=== PATIENT | female | born 1945 | race Caucasian/White ===

== ENCOUNTER 2022-05-15 08:04 | Outpatient (CLI) | payer MEDICARE, SELFPAY ==
[2022-05-15 15:35] LABS: Chloride* 105 mmol/L (96-114); Potassium* 4.1 mmol/L (3.6-5.1); Sodium* 139 mmol/L (135-149)
[2022-05-15 15:38] LABS: Blood Urea Nitrogen* 20 mg/dL (7-30); Carbon Dioxide* 28 mmol/L (20-32); Creatinine* 0.8 mg/dL (0.5-1.5); Estimated Glomerular Filt Rate 76 ml/min; Glucose* 103 mg/dL (60-115)
[2022-05-15 15:39] LABS: Calcium* 9.3 mg/dL (8.4-10.6)
== END 2022-05-15 08:05 | disposition home or self-care (01) ==
PROVIDERS: PCP Family Medicine; Visit Provider Family Medicine
DX: I10 Essential (primary) hypertension (principal); R35.0 Frequency of micturition
CPT/HCPCS: 80048; 87086; 87186

== ENCOUNTER 2022-08-27 08:49 | Outpatient (CLI) | payer MEDICARE, SELFPAY ==
[2022-08-27 14:29] LABS: Alanine Aminotransferase* 28 U/L (4-35); Albumin* 4.2 g/dL (3.3-5.0); Alkaline Phosphatase* 93 U/L (40-150); Aspartate Amino Transferase* 31 U/L (12-35); Bilirubin Total* 0.8 mg/dL (0.1-1.5); Blood Urea Nitrogen* 23 mg/dL (7-30); Calcium* 8.9 mg/dL (8.4-10.6); Carbon Dioxide* 30 mmol/L (20-32); Chloride* 107 mmol/L (96-114); Cholesterol* 194 mg/dL (90-199); Creatinine* 0.8 mg/dL (0.5-1.5); Estimated Glomerular Filt Rate 76 ml/min; Glucose* 92 mg/dL (60-115); HDL Cholesterol* 65 mg/dL (>=50); LDL Cholesterol Calculated 106 mg/dL (<100); Potassium* 3.6 mmol/L (3.6-5.1); Sodium* 141 mmol/L (135-149); Triglycerides* 114 mg/dL (40-149)
== END 2022-08-27 08:50 | disposition home or self-care (01) ==
LOC: LKVREF 08:56
PROVIDERS: PCP Family Medicine; Visit Provider Family Medicine
DX: I10 Essential (primary) hypertension (principal); E78.00 Pure hypercholesterolemia, unspecified
CPT/HCPCS: 80053; 80061

== ENCOUNTER 2022-08-30 13:50 | Outpatient (CLI) | payer MEDICARE, SELFPAY ==
--- NOTE | 2022-08-30 14:00 | CRLHL7_ITS ---
For Patients: As a result of the Century Cures Act, medical imaging exams and procedure reports are released immediately into your electronic medical record. You may view this report before your referring provider. If you have questions, please contact your health care provider. DXA BONE MINERAL DENSITY STUDY Reason for exam: Osteopenia. Current height (in): 64. Weight (lb): 165. Menopause age: 51. Ethnicity: White. 1. Have you had a previous hip or vertebral fracture? No. 2. Have you had any fractures during your adult life which did not result from significant trauma (e.g., auto accident)? No. 3. Did either of your parents have a hip fracture? Yes. 4. Do you smoke? No. 5. Have you ever taken Glucocorticoids? No. 6. Do you have rheumatoid arthritis? No. 7. Do you have secondary osteoporosis? No. 8. Do you drink 3 or more alcoholic drinks per day? No. 9. Are you being treated for osteoporosis? No. 10. Have you ever taken any of the following medications: Actonel, Evista, Fosamax, Miacalcin, Reclast, Boniva, Forteo, HRT (i.e., estrogen/hormone therapy), Protelos, Prolia, Vitamin D, Calcium, other ??? please specify. ANSWER: Yes, vitamin D and calcium. 11. Do you have any of the following medical conditions: Anorexia or bulimia, asthma or emphysema, end stage renal disease, hyperparathyroidism, any seizure disorders, cancer, inflammatory bowel diseases, hysterectomy, other ??? please specify. ANSWER: Yes, hysterectomy. 12. What was your maximum height (inches)? 64. 13. Do you perform weight bearing exercise regularly? No. 14. Do you regularly consume dairy products? Yes. 15. Do you drink caffeinated beverages? Yes. If female: 16. At what age did your period start? 11. 17. Are you premenopausal? No. 18. How many full-term pregnancies have you had? 4. 19. Have you ever missed your period for more than 6 months in a row (not including or menopause)? No. TECHNIQUE: Bone mineral density study was performed using the [employer]. FINDINGS: The results of the study expressed as bone mineral density (BMD) are as follows: Lumbar spine L1 to L4: BMD: 0.874 g/cm2. T-score: -1.6. Z-score: 0.9 Neck Left: BMD: 0.723 g/cm2. T-score: -1.1. Z-score: 1.0 Right: BMD: 0.765 g/cm2. T-score: -0.8. Z-score: 1.4 Total Left: BMD: 0.920 g/cm2. T-score: -0.2. Z-score: 1.7 Right: BMD: 0.874 g/cm2. T-score: -0.6. Z-score: 1.3 IMPRESSION: Osteopenia. *Comparison exams done prior to 01/2020 were performed on different unit, [facility]. COMPARISON: Compared with scan of 11/10/2015, the bone mineral density has increased by 0.9 percent at the spine and increased by 0.2 percent at the hip. FRAX 10-year Fracture Risk Major Osteoporotic Fracture: 17% Hip Fracture: 8.1% Reported Risk Factors: [place] () Neck BMD=0.723, BMI= 28.3, parental fracture Gil Kirkland M.D. Diagnostic Radiologist [email or web address] KRISTEN/[email or web address] wick/Dictated by: Gil Kirkland MD @ 08/31/2022 3:21:00 PM (Electronically Signed)
== END 2022-08-30 13:51 | disposition home or self-care (01) ==
LOC: RAD 13:50
PROVIDERS: PCP Family Medicine; Visit Provider Family Medicine
DX: M85.80 Other specified disorders of bone density and structure, unspecified site (principal); M85.89 Other specified disorders of bone density and structure, multiple sites
CPT/HCPCS: 77080

== ENCOUNTER 2022-11-13 14:49 | Outpatient (CLI) | payer MEDICARE, SELFPAY ==
--- NOTE | 2022-11-13 15:00 | CRLHL7_ITS ---
For Patients: As a result of the Century Cures Act, medical imaging exams and procedure reports are released immediately into your electronic medical record. You may view this report before your referring provider. If you have questions, please contact your health care provider. BILATERAL SCREENING MAMMOGRAM WITH COMPUTER-AIDED DETECTION AND TOMOSYNTHESIS TECHNIQUE: CC and MLO views were obtained. These mammographic images have been obtained using full-field digital technique. These mammographic images were interpreted with the benefit of computer-aided detection. Breast tomosynthesis was used in this interpretation. COMPARISON FILM: 10/29/19, 02/03/18, 01/02/17. FINDINGS: There are scattered areas of fibroglandular density. IMPRESSION: There is no radiographic evidence for malignancy. ASSESSMENT: BI-RADS Category 1: Negative RECOMMENDATION: Routine screening mammogram in 1 year. A lay language report of this examination will be provided to the patient. CHASTITY CRAWFORD M.D. Diagnostic/Breast Radiologist [email or web address] LUCIA/[email or web address] Transcribed: 11/14/2022, 2:[address]/Dictated by: Chastity Crawford MD @ 11/14/2022 8:51:00 AM (Electronically Signed)
== END 2022-11-13 14:50 | disposition home or self-care (01) ==
PROVIDERS: PCP Family Medicine; Visit Provider Family Medicine
DX: Z12.31 Encounter for screening mammogram for malignant neoplasm of breast (principal)
CPT/HCPCS: 77063; 77067

== ENCOUNTER 2023-07-18 12:37 | Outpatient (CLI) | payer MEDICARE, SELFPAY | END 2023-07-18 12:38 | disposition home or self-care (01) | LOC: RAD 12:38 | PROVIDERS: PCP Family Medicine; Visit Provider Family Medicine | DX: I77.810 Thoracic aortic ectasia (principal); I35.1 Nonrheumatic aortic (valve) insufficiency; I34.0 Nonrheumatic mitral (valve) insufficiency; E78.00 Pure hypercholesterolemia, unspecified; I10 Essential (primary) hypertension | CPT/HCPCS: 93306 ==

== ENCOUNTER 2023-08-09 08:16 | Outpatient (CLI) | payer MEDICARE, SELFPAY | END 2023-08-09 08:17 | disposition home or self-care (01) | LOC: NFLDREF 08-12 01:24 | PROVIDERS: PCP Family Medicine; Referring Provider Family Medicine; Visit Provider Family Medicine | DX: E78.00 Pure hypercholesterolemia, unspecified (principal); I10 Essential (primary) hypertension; R53.83 Other fatigue | CPT/HCPCS: 80053; 80061; 82306; 84443 ==

== ENCOUNTER 2023-10-17 15:48 | Inpatient (IN) | payer MEDICARE, SELFPAY ==
[2023-10-17] VITALS (8 sets, daily range): BP systolic 166; BP diastolic 85; PULSE 50–71; RESP 18; TEMP 36.2; O2SAT 88–99; BMI 25.7
--- NOTE | 2023-10-17 16:04 | ED_ITS ---
HPI - Abdominal Pain General Time Seen by Provider: 16:04 Date Seen: 10/17/23 Chief Complaint: Abdominal Pain Stated Complaint: Lower L abdominal pain, nausea Time Seen by Provider: 10/17/23 16:01 Source: patient and RN notes reviewed Mode of arrival: ambulatory Limitations: no limitations History of Present Illness HPI narrative: This 78-year-old female is coming in with complaint of sudden onset left lower abdominal pain. She has had some nausea and vomiting with this. She states this pain is similar to when she had hernia reduced. She believe she has had a done twice. She does know 1 time was in the ER in [facility] when [place]. This was maybe 2021. She thought she had been seen here before. I did go back into the historical link, she was seen in 2020, she did not have any hernia reduced but there was notable umbilical and left inguinal hernias, was treated for probable sigmoid diverticulitis. She states she is up-to-date on colonoscopy. She has had no fever. Is not passing any gas now. Pain is definitely there and problematic for her. Specifically, symptoms started about a 1/2 hour after eating lunch at 1:00 p.m.. She has had nausea, has had more dry heaving than true vomiting. MD elicited complaint: abdominal pain Related Data Home Medications Medication Instructions Recorded Confirmed coenzyme Q10 100 mg capsule 300 mg PO QDAY 07/17/22 08/13/23 lutein extract 15 mg-zeaxanthin 1 cap PO DAILY 08/30/22 08/13/23 extract 0.7 mg capsule Fish oil PO DAILY 04/05/23 08/13/23 Previous Rx's Medication Instructions Recorded amlodipine 2.5 mg tablet 2.5 mg PO QDAY #90 tabs 08/13/23 rosuvastatin 5 mg tablet 5 mg PO QDAY #90 tabs 08/13/23 triamterene 37.5 1 cap PO QAM #90 caps 08/13/23 mg-hydrochlorothiazide 25 mg capsule Allergies Allergy/AdvReac Type Severity Reaction Status Date / Time amoxicillin Allergy Unknown Verified 10/17/23 18:08 losartan Allergy Unknown Verified 10/17/23 18:08 Review of Systems Status of ROS Reports: 6 or more systems reviewed and unremarkable except as noted in History and below [facility] Medical History Macular degeneration ?H35.30 - Unspecified macular degeneration (ICD-10) Hypercholesteremia ?E78.00 - Pure hypercholesterolemia, unspecified (ICD-10) HTN (hypertension) ?I10 - Essential (primary) hypertension (ICD-10) Surgical History History of hysterectomy ?Z90.710 - Acquired absence of both cervix and uterus (ICD-10) History of esophagogastroduodenoscopy (EGD) ?Z98.890 - Other specified postprocedural states (ICD-10) History of bilateral salpingo-oophorectomy (BSO) ?Z90.79 - Acquired absence of other genital organ(s) (ICD-10) ?Z90.722 - Acquired absence of ovaries, 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) Social History Smoking Status: Never smoker Do you use any of these nicotine containing products: None Second hand tobacco smoke exposure: No How often do you have a drink containing alcohol: never AUDIT-C Alcohol total score: 0 Non-prescribed substance use: denies use Little interest or pleasure in doing things: several days Feeling down, depressed, or hopeless: several days service: No Exam Const: Vital Signs, click to edit/add: Vital Signs - 24 hr 10/17/23 15:56 10/17/23 16:58 10/17/23 17:00 Temperature 97.2 F L Pulse Rate 54 L 50 L Pulse Rate [Pulse Oximeter] 68 Respiratory Rate 18 Blood Pressure [Ri ght Upper Arm] 166/85 H Pulse Oximetry 96 92 96 Oxygen Delivery Me thod Room Air Oxygen Flow Rate 10/17/23 17:18 10/17/23 17:30 10/17/23 18:21 Temperature Pulse Rate 57 L 69 Pulse Rate [Pulse Oximeter] Respiratory Rate Blood Pressure [Ri ght Upper Arm] Pulse Oximetry 99 97 96 Oxygen Delivery Me thod Oxygen Flow Rate 10/17/23 18:30 10/17/23 19:00 10/17/23 19:00 Temperature Pulse Rate 69 71 Pulse Rate [Pulse Oximeter] Respiratory Rate Blood Pressure [Ri ght Upper Arm] Pulse Oximetry 88 97 97 Oxygen Delivery Me thod Nasal Cannula Oxygen Flow Rate 10 She is a very pleasant 78-year-old female that is alert, interactive, seems like she is in a mild amount of pain but during examination, pain increases with palpation of left inguinal and left lower quadrant abdomen. Pupils equal round reactive, conjugate gaze, sclera clear. Speech is normal. Symmetrical facial function. Lungs are clear, good air entry, no wheeze or crackles. CV regular rate and rhythm, no murmur, normal S1-S2, no S3-S4. Abdomen is not distended, she has normal bowel sounds. She has palpable left inguinal hernia that is tender for her, there is no way would be able to reduce this at this point, she is too tender. She is also tender in the left lower quadrant with some guarding, no true rebound. She was ambulatory into the ED of her own accord. Moving extremities equally, no significant edema. No rash or jaundice noted. Documenting provider has reviewed patient's vital signs: yes Course Course ED Course: This patient is presenting with presumed inguinal hernia, rule out incarceration. We will get her some pain management, IV fluids started, have reclined the head of her bed back further. Will see if we can get her to relax enough and potentially reduce this. Will get CT imaging, full complement of labs. Reevaluation(s) Time of Reevaluation #1: 17:17 Reevaluation #1: Patient is still looking uncomfortable. She states the morphine helped her relax a little bit, still having quite a bit of pain. She definitely has left inguinal probable palpable bowel that is tender. Her lactate is normal. I am going to give her 1 mg IV Versed, place her on nasal cannula oxygen, have later flat, consider a bit more morphine. We are waiting CT imaging, will work on pain management and relaxation, will attempt to see if I can reduce this if I can get her comfortable enough. Time of Reevaluation #2: 18:46 Reevaluation #2: Re-dose to patient with 2 mg IV morphine, 1 mg IV Versed, did give 250 mL normal saline with these medicines, had her in Trendelenburg. She has a palpable loop of probable bowel in that left inguinal area that is tender, am unable to reduce this at all. Cannot really feel the origin where it is coming through. Time of Reevaluation #3: 19:39 Reevaluation #3: Updated patient that she will be going to surgery for incarcerated left inguinal hernia and secondary small-bowel obstruction from this. She is currently stable her right now, does not have any need for anything further for nausea or pain at this time. She will keep us updated. She is aware to be NPO. Consultations Consultation #1: Did call Dr. Paul our on-call general surgeon. Have reviewed the situation, we are waiting CT reading, I will contact her once I have that back. She is aware that I was unable to reduce this hernia. Time: 18:52 Consultation #2: Have updated Dr. Paul that there is incarcerated hernia with early small-bowel obstruction. She will be taking patient to the OR. Time: 19:18 Vital Signs Vital signs: Initial Vital Signs Temperature 97.2 F L 10/17/23 15:56 Temperature Source Temporal Artery Scan 10/17/23 15:56 Pulse Rate 68 10/17/23 15:56 Respiratory Rate 18 10/17/23 15:56 Blood Pressure 166/85 H 10/17/23 15:56 Blood Pressure Mean 112 H 10/17/23 15:56 Pulse Oximetry 96 10/17/23 15:56 Oxygen Delivery Method Room Air 10/17/23 15:56 Vital Signs Temperature 97.2 F L 10/17/23 15:56 Pulse Rate 68 10/17/23 15:56 Respiratory Rate 18 10/17/23 15:56 Blood Pressure 166/85 H 10/17/23 15:56 Pulse Oximetry 96 10/17/23 15:56 Oxygen Delivery Method Room Air 10/17/23 15:56 Temperature 97.2 F L 10/17/23 15:56 Pulse Rate 71 10/17/23 19:00 Respiratory Rate 18 10/17/23 15:56 Blood Pressure 166/85 H 10/17/23 15:56 Pulse Oximetry 97 10/17/23 19:00 Oxygen Delivery Method Nasal Cannula 10/17/23 19:00 Oxygen Flow Rate 10 10/17/23 19:00 Medications Administered Medications: Discontinued Medications Generic Name Dose Route Start Last Admin Trade Name Freq PRN Reason Stop Dose Admin Ertapenem 1 gm 10/17/23 21:28 10/17/23 21:28 Ertapenem 1 Gm Inj IVPB 10/17/23 21:29 1 gm ONCE ONE Administration Sodium Chloride 1,000 mls @ 500 mls/hr 10/17/23 16:12 10/17/23 17:52 0.9 % Sodium Chloride 1000 Ml IV 10/17/23 18:11 Infused .Q2H RAMY Infusion Sodium Chloride 250 mls @ 250 mls/hr 10/17/23 18:55 10/17/23 19:50 0.9 % Sodium Chloride 250 Ml IV 10/17/23 19:54 Infused .Q1H ONE Infusion Midazolam HCl 1 mg 10/17/23 17:18 10/17/23 17:40 Midazolam Hcl 1 Mg/Ml Inj IVP 10/17/23 17:19 1 mg ONCE ONE Administration Midazolam HCl 1 mg 10/17/23 18:40 10/17/23 18:50 Midazolam Hcl 1 Mg/Ml Inj IVP 10/17/23 18:41 1 mg ONCE ONE Administration Morphine Sulfate 2 mg 10/17/23 16:11 10/17/23 16:52 Morphine 2 Mg/Ml Inj IVP 10/17/23 16:12 2 mg ONCE ONE Administration Morphine Sulfate 2 mg 10/17/23 18:40 10/17/23 18:50 Morphine 2 Mg/Ml Inj IVP 10/17/23 18:41 2 mg ONCE ONE Administration Ondansetron HCl 4 mg 10/17/23 16:11 10/17/23 16:51 Ondansetron 2 Mg/Ml Inj IVP 10/17/23 16:12 4 mg ONCE ONE Administration MDM - Abdominal Pain Medical Records Attestation: I reviewed the patient's medical records. Medical records narrative: She was in the ER on 08/17/2021. She had CT imaging done with this non incarcerated umbilical hernia, left inguinal hernia and sigmoid inflammatory changes that were treated for diverticulitis. Lab Data Attestation: I reviewed the patient's lab results. Labs: Lab Results 10/17/23 Range/Units 16:50 WBC 6.30 (4.50-11.00) K/uL RBC 4.50 (4.00-5.20) m/uL Hgb 13.1 (12.0-16.0) gm/dL Hct 38.9 (33.0-51.0) % MCV 86 (80-100) fL MCH 29 (26-34) pg MCHC 34 (32-36) gm/dL RDW Coeff of Issa 13.0 (11.5-15.5) % Plt Count 258 (140-440) K/uL Neut % (Auto) 73.8 H (42.0-72.0) % Lymph % (Auto) 20.3 (20-44) % [place] % (Auto) 5.4 (0.0-11.0) % Eos % (Auto) 0.2 (0.0-7.0) % Baso % (Auto) 0.3 (0.0-3.0) % Neut # (Auto) 4.60 (1.7-7.0) K/uL Lymph # (Auto) 1.28 (0.90-2.90) K/uL [place] # (Auto) 0.30 (0.00-0.90) K/UL Eos # (Auto) 0.01 (0.00-0.50) K/uL Baso # (Auto) 0.02 (0.00-0.30) K/uL Abs Immat Gran (auto) 0.00 (0.00-0.30) K/uL Imm/Tot Granulo (auto) 0.0 % Sodium 134 L (135-149) mmol/L Potassium 3.6 (3.6-5.1) mmol/L Chloride 103 (96-114) mmol/L Carbon Dioxide 23 (20-32) mmol/L Anion Gap 8 (7-15) mEq/L BUN 23 (7-30) mg/dL Creatinine 0.8 (0.5-1.5) mg/dL Estimated Creat Clear 40.04 Estimated GFR 75 ml/min Glucose 167 H (60-115) mg/dL Lactate 1.2 (0.5-1.9) mmol/L Calcium 9.3 (8.4-10.6) mg/dL Total Bilirubin 0.6 (0.1-1.5) mg/dL AST 28 (12-35) U/L ALT 25 (4-35) U/L Alkaline Phosphatase 83 (40-150) U/L C-Reactive Protein < 0.5 L (0.5-1.0) mg/dL Total Protein 7.7 (6.0-8.3) g/dL Albumin 4.4 (3.3-5.0) g/dL Imaging Data CT scan - abdomen: Attestation: I have reviewed the pertinent imaging results. My impression: Did review CT, can see bowel in the inguinal area. Await Radiology over-read. Radiologist's impression: Patient: JOSE SHEPPARD Facility:?[facility] Patient ID:?[id number] Site Patient ID:?[id number]. Site :?[id number] Study:?CT Abdomen/Pelvis W/ 74CC ISOVUE 370-10/17/2023 6:05:31 PM Ordering Physician:ANGEL Final Report: INDICATION: Probable inguinal hernia, left-sided pain. TECHNIQUE: CT abdomen and pelvis acquired with 74 cc Isovue 370 IV contrast. COMPARISON: None. FINDINGS: Lower chest: Unremarkable. Liver: Unremarkable. Normal in size and attenuation. No suspicious masses. Gallbladder and bile ducts: Unremarkable. No stones or inflammation. No biliary dilatation. Pancreas: Unremarkable. No mass or inflammation. Spleen: Unremarkable. Normal in size. No masses. Adrenal glands: Unremarkable. No nodules. Kidneys: Unremarkable. No suspicious masses, stones, or hydronephrosis. GI tract: Small to [id number] hiatal hernia. Diverticulosis without pericolonic inflammation. The appendix not clearly visualized. Vasculature: Normal caliber abdominal aorta with moderate atherosclerotic calcification. Mesenteric arteries are patent. Lymph nodes: No lymphadenopathy. Peritoneum/Abdominal Wall: Moderate-size left femoral hernia containing a short segment of incarcerated small bowel resulting in mild early proximal small bowel obstruction. There is a small amount of fluid within the hernia sac. No perforation or pneumatosis. No free air or significant free fluid. Pelvis: Status post hysterectomy. Bones: Unremarkable for age. IMPRESSION: 1. Small to moderate-sized left femoral hernia containing a short segment of incarcerated small bowel resulting in mild early proximal small bowel obstruction. No evidence for bowel perforation or pneumatosis. 2. Moderate to large hiatal hernia. 3. Diverticulosis without evidence of diverticulitis. Please note that all CT scans at this facility use dose modulation, iterative reconstruction, and/or weight-based dosing when appropriate to reduce radiation dose to as low as reasonably achievable. Dictated by Baljit Esteves MD @ 10/17/2023 7:09:05 PM (Electronic Signature) ECG Data Attestation: I personally reviewed and interpreted this ECG as follows: (Normal sinus rhythm, 60 beats per minute. QT corrected 446 milliseconds. No concerning change to this EKG.) ECG interpretation date: 10/17/23 ECG interpretation time: 19:07 Discharge Plan Discharge Clinical Impression: Incarcerated left inguinal hernia, Small bowel obstruction Patient Disposition: XFER to OR Condition: Stable
--- NOTE | 2023-10-17 16:17 | CT_ITS ---
Patient: JOSE SHEPPARD Facility:?[facility] Patient ID:?[id number] Site Patient ID:?[id number]. Site :?1945 Study:?CT-Abdomen/Pelvis W/ 74CC ISOVUE 370-10/17/2023 6:05:31 PM Ordering Physician:ANGEL Final Report: INDICATION: Probable inguinal hernia, left-sided pain. TECHNIQUE: CT abdomen and pelvis acquired with 74 cc Isovue 370 IV contrast. COMPARISON: None. FINDINGS: Lower chest: Unremarkable. Liver: Unremarkable. Normal in size and attenuation. No suspicious masses. Gallbladder and bile ducts: Unremarkable. No stones or inflammation. No biliary dilatation. Pancreas: Unremarkable. No mass or inflammation. Spleen: Unremarkable. Normal in size. No masses. Adrenal glands: Unremarkable. No nodules. Kidneys: Unremarkable. No suspicious masses, stones, or hydronephrosis. GI tract: Small to [id number] hiatal hernia. Diverticulosis without pericolonic inflammation. The appendix not clearly visualized. Vasculature: Normal caliber abdominal aorta with moderate atherosclerotic calcification. Mesenteric arteries are patent. Lymph nodes: No lymphadenopathy. Peritoneum/Abdominal Wall: Moderate-size left femoral hernia containing a short segment of incarcerated small bowel resulting in mild early proximal small bowel obstruction. There is a small amount of fluid within the hernia sac. No perforation or pneumatosis. No free air or significant free fluid. Pelvis: Status post hysterectomy. Bones: Unremarkable for age. IMPRESSION: 1. Small to moderate-sized left femoral hernia containing a short segment of incarcerated small bowel resulting in mild early proximal small bowel obstruction. No evidence for bowel perforation or pneumatosis. 2. Moderate to large hiatal hernia. 3. Diverticulosis without evidence of diverticulitis. Please note that all CT scans at this facility use dose modulation, iterative reconstruction, and/or weight-based dosing when appropriate to reduce radiation dose to as low as reasonably achievable. Dictated by Baljit Esteves MD @ 10/17/2023 7:09:05 PM Signed by:?Baljit Esteves MD @10/17/2023 7:09:05 PM (Electronic Signature)
[2023-10-17] MEDS: 0.9 % SODIUM CHLORIDE 1000 ml 1,000 ML IV (16:50)
[2023-10-17] MEDS: ONDANSETRON 2 MG/ML inj 4 MG IVP (16:51)
[2023-10-17] MEDS: MORPHINE 2 MG/ML inj IVP ×2 (16:52→18:50)
[2023-10-17 16:58] LABS: Lactate* 1.2 mmol/L (0.5-1.9)
[2023-10-17 17:00] LABS: Basophils Absolute Auto 0.02 K/uL (0.00-0.30); Basophils Percent Auto 0.3 % (0.0-3.0); Eosinophils Absolute Auto 0.01 K/uL (0.00-0.50); Eosinophils Percent Auto 0.2 % (0.0-7.0); Hematocrit 38.9 % (33.0-51.0); Hemoglobin* 13.1 gm/dL (12.0-16.0); Lymphocytes Absolute Auto 1.28 K/uL (0.90-2.90); Lymphocytes Percent Auto 20.3 % (20-44); Mean Corpuscular HGB Conc 34 gm/dL (32-36); Mean Corpuscular Hemoglobin 29 pg (26-34); Mean Corpuscular Volume 86 fL (80-100); Monocytes Percent Auto 5.4 % (0.0-11.0); Neutrophils Percent Auto 73.8 % (42.0-72.0); Platelet Count* 258 K/uL (140-440)
[2023-10-17 17:05] LABS: Slide Review Reflex No
[2023-10-17 17:11] LABS: Albumin* 4.4 g/dL (3.3-5.0); Chloride* 103 mmol/L (96-114)
[2023-10-17 17:12] LABS: Potassium* 3.6 mmol/L (3.6-5.1); Sodium* 134 mmol/L (135-149)
[2023-10-17 17:14] LABS: Creatinine* 0.8 mg/dL (0.5-1.5); Est. Creatinine Clearance* 40.04; Estimated Glomerular Filt Rate 75 ml/min
[2023-10-17 17:15] LABS: Alanine Aminotransferase* 25 U/L (4-35); Alkaline Phosphatase* 83 U/L (40-150); Anion Gap 8 mEq/L (7-15); Aspartate Amino Transferase* 28 U/L (12-35); Bilirubin Total* 0.6 mg/dL (0.1-1.5); Blood Urea Nitrogen* 23 mg/dL (7-30); Calcium* 9.3 mg/dL (8.4-10.6); Carbon Dioxide* 23 mmol/L (20-32); Glucose* 167 mg/dL (60-115); Total Protein* 7.7 g/dL (6.0-8.3)
[2023-10-17 17:28] LABS: C Reactive Protein* < 0.5 mg/dL (0.5-1.0)
[2023-10-17] MEDS: MIDAZOLAM HCL 1 MG/ML inj IVP ×2 (17:40→18:50)
[2023-10-17] MEDS: 0.9 % SODIUM CHLORIDE 250 ml 250 ML IV (18:50)
--- NOTE | 2023-10-17 20:40 | P.GSCN_ITS ---
History of Present Illness Consult details Date Seen: 10/17/23 Consult date: 10/18/23 Narrative: The patient is a 78-year-old female who presents to the ER today with a painful incarcerated hernia. She states that she ate some rice for lunch and after lunch she developed nausea and left groin pain. She has had this twice in the past. Both times she went to the emergency department. The 1st time it was reduced and then she were hernia belt which seemed to help. However the 2nd time she does not remember what happened. She states she has had no issues since. PFSH [facility] Medical History Macular degeneration ?H35.30 - Unspecified macular degeneration (ICD-10) Hypercholesteremia ?E78.00 - Pure hypercholesterolemia, unspecified (ICD-10) HTN (hypertension) ?I10 - Essential (primary) hypertension (ICD-10) Surgical History History of hysterectomy ?Z90.710 - Acquired absence of both cervix and uterus (ICD-10) History of esophagogastroduodenoscopy (EGD) ?Z98.890 - Other specified postprocedural states (ICD-10) History of bilateral salpingo-oophorectomy (BSO) ?Z90.79 - Acquired absence of other genital organ(s) (ICD-10) ?Z90.722 - Acquired absence of ovaries, 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) Social History What is your current living situation?: I presently have a place to live Problems where you live: no known problems In the past 12 months, utilities in danger of being shut off: no In past 12 months, lack of transportation kept you from medical appts, meetings, work, or getting things needed for daily living: no In the past 12 mos, have been you worried that your food would run out before you had money to buy more?: never true In the past 12 mos, the food you bought just didn't last and you didn't have money to buy more?: never true Highest level of school completed/degree received: some college, no degree Smoking Status: Never smoker Do you use any of these nicotine containing products: None Second hand tobacco smoke exposure: No How often do you have a drink containing alcohol: never AUDIT-C Alcohol total score: 0 Non-prescribed substance use: denies use Caffeine: No How often does anyone, including family, friends and others, physically hurt you : never How often does anyone, including family, friends and others, insult or talk down to you: never How often does anyone, including family, friends and others, threaten you with harm: never How often does anyone, including family, friends and others, scream or curse at you: never Little interest or pleasure in doing things: several days Feeling down, depressed, or hopeless: several days service: No Meds Home Medications and Allergies Home Medications Medication Instructions Recorded Confirmed Type coenzyme Q10 100 mg capsule 300 mg PO DAILY 07/17/22 10/18/23 History lutein extract 15 mg-zeaxanthin 1 cap PO DAILY 08/30/22 10/18/23 History extract 0.7 mg capsule omega 3-dez-sog-fish oil 1,000 mg 1 cap PO DAILY 10/18/23 10/18/23 History (120 mg-180 mg) capsule (Fish Oil) rosuvastatin 5 mg tablet 5 mg PO HS 10/18/23 10/18/23 History Allergies Allergy/AdvReac Type Severity Reaction Status Date / Time amoxicillin Allergy Unknown Verified 10/17/23 18:08 losartan Allergy Unknown Verified 10/17/23 18:08 Exam Narrative: Exam Narrative: General: No acute distress CV: Regular rate Respiratory: Breathing nonlabored on room air HEENT: NG tube is in place there is bloody/brownish thin drainage. Abdomen: Soft. Nontender. : There is a palpable mass which appears to be above the inguinal ligament. This is non reducible. Const: Vital Signs, click to edit/add: Vital Signs - 24 hr 10/17/23 15:56 10/17/23 16:58 10/17/23 17:00 Temperature 97.2 F L Pulse Rate 54 L 50 L Pulse Rate [Pulse Oximeter] 68 Respiratory Rate 18 Blood Pressure [Ri ght Upper Arm] 166/85 H Pulse Oximetry 96 92 96 Oxygen Delivery Me thod Room Air Oxygen Flow Rate 10/17/23 17:18 10/17/23 17:30 10/17/23 18:21 Temperature Pulse Rate 57 L 69 Pulse Rate [Pulse Oximeter] Respiratory Rate Blood Pressure [Ri ght Upper Arm] Pulse Oximetry 99 97 96 Oxygen Delivery Me thod Oxygen Flow Rate 10/17/23 18:30 10/17/23 19:00 10/17/23 19:00 Temperature Pulse Rate 69 71 Pulse Rate [Pulse Oximeter] Respiratory Rate Blood Pressure [Ri ght Upper Arm] Pulse Oximetry 88 97 97 Oxygen Delivery Me thod Nasal Cannula Oxygen Flow Rate 10 Results Labs Labs: Abnormal lab results 10/17/23 Range/Units 16:50 Neut % (Auto) 73.8 H (42.0-72.0) % Sodium 134 L (135-149) mmol/L Glucose 167 H (60-115) mg/dL C-Reactive Protein < 0.5 L (0.5-1.0) mg/dL Diabetes panel 10/17/23 Range/Units 16:50 Sodium 134 L (135-149) mmol/L Potassium 3.6 (3.6-5.1) mmol/L Chloride 103 (96-114) mmol/L Carbon Dioxide 23 (20-32) mmol/L BUN 23 (7-30) mg/dL Creatinine 0.8 (0.5-1.5) mg/dL Glucose 167 H (60-115) mg/dL Calcium 9.3 (8.4-10.6) mg/dL AST 28 (12-35) U/L ALT 25 (4-35) U/L Alkaline Phosphatase 83 (40-150) U/L Total Protein 7.7 (6.0-8.3) g/dL Albumin 4.4 (3.3-5.0) g/dL Calcium panel 10/17/23 Range/Units 16:50 Calcium 9.3 (8.4-10.6) mg/dL Albumin 4.4 (3.3-5.0) g/dL Pituitary panel 10/17/23 Range/Units 16:50 Sodium 134 L (135-149) mmol/L Potassium 3.6 (3.6-5.1) mmol/L Chloride 103 (96-114) mmol/L Carbon Dioxide 23 (20-32) mmol/L BUN 23 (7-30) mg/dL Creatinine 0.8 (0.5-1.5) mg/dL Glucose 167 H (60-115) mg/dL Calcium 9.3 (8.4-10.6) mg/dL Adrenal panel 10/17/23 Range/Units 16:50 Sodium 134 L (135-149) mmol/L Potassium 3.6 (3.6-5.1) mmol/L Chloride 103 (96-114) mmol/L Carbon Dioxide 23 (20-32) mmol/L BUN 23 (7-30) mg/dL Creatinine 0.8 (0.5-1.5) mg/dL Glucose 167 H (60-115) mg/dL Calcium 9.3 (8.4-10.6) mg/dL Total Bilirubin 0.6 (0.1-1.5) mg/dL AST 28 (12-35) U/L ALT 25 (4-35) U/L Alkaline Phosphatase 83 (40-150) U/L Total Protein 7.7 (6.0-8.3) g/dL Albumin 4.4 (3.3-5.0) g/dL All other labs normal. Imaging Abdomen CT scan report/results: report reviewed and image reviewed Additional studies: Scan abdomen and pelvis done this evening shows 1. Small to moderate size left femoral hernia containing a short segment of incarcerated small bowel resulting in mild early proximal small bowel obstruction. No evidence for bowel perforation or pneumatosis 2. Moderate to large hiatal hernia 3. Diverticulosis without evidence of diverticulitis Progress Note:A&P Assessment and plan (1) Incarcerated left inguinal hernia: Status: Acute (2) HTN (hypertension): Status: Acute (3) Hiatal hernia: Status: Acute Plan The patient is a 78-year-old female with an incarcerated left groin hernia. Clinically this appears to be above the inguinal ligament, however on CT scan it appears to be a femoral hernia. There is incarcerated bowel. This is causing an early obstruction. She is also noted to have a large hiatal hernia with a large amount of food matter in the hernia in the chest. Because of concern for aspiration on anesthetic induction, an NG tube was placed. The patient also has per report a history of esophageal stricture. NG tube placement was performed by nursing. The tube passed without difficulty, however there was bloody fluid return. X-ray showed the NG appeared to be coiled within the stomach in the ch est. This was pulled back slightly. PTH was checked which was 2. The drainage turned from red to brown. The patient denied chest pains or abdominal pain. Likely the blood is trauma from insertion. -discussed with patient the need for emergency surgery because of concern for bowel compromise. We will plan on open hernia repair with possible laparoscopic or open exploration to examine the incarcerated bowel if necessary. She understands that she may need a bowel resection if there is bowel compromise. We briefly discussed risk of infection, need for bowel resection, bleeding. Recovery will depend on the surgery that is performed. The patient agreed to proceed and signed informed consent. We will plan on surgery emergently this evening.
--- NOTE | 2023-10-17 20:57 | XR_ITS ---
Patient: JOSE SHEPPARD Facility:?[facility] Patient ID:?[id number] Site Patient ID:?[id number]. Site :?[id number] Study:?XRay-Abdomen NG TUBE PLACEMENT-10/17/2023 9:16:23 PM Ordering Physician:STACIE Final Report: INDICATION: NG tube placement TECHNIQUE: Two views chest abdomen FINDINGS: NG tube with tip in the lower chest probably in the distal esophagus. Dictated by Chastity Crawford MD @ 10/17/2023 9:44:06 PM Signed by:?Chastity Crawford MD @10/17/2023 9:44:06 PM (Electronic Signature)
[2023-10-17] MEDS: ERTAPENEM 1 GM inj IVPB (21:28)
[2023-10-17] MEDS: LACTATED RINGERS 1000 ML 1,000 ML 125 ML IV (21:30)
[2023-10-17] MEDS: LIDOCAINE 1 % PF 30 ML 8 ML INJECTION (23:05)
[2023-10-17] MEDS: BUPIVACAINE 0.5% 30 ML 8 ML INJECTION (23:05)
[2023-10-18] VITALS (26 sets, daily range): BP systolic 100–150; BP diastolic 57–77; PULSE 63–73; RESP 16–18; TEMP 36.1–36.6; O2SAT 92–99; BMI 25.7
[2023-10-18] MEDS: LACTATED RINGERS 1000 ML 1,000 ML 125 ML IV ×4 (00:15→18:15)
--- NOTE | 2023-10-18 00:23 | P.GSOP_ITS ---
Operative Note Date of procedure: 10/17/23 Pre-op diagnosis: Incarcerated left femoral hernia Post-op diagnosis: Strangulated left femoral hernia containing ischemic small bowel Type of Procedure: 1. Exploratory laparotomy with small-bowel resection 2. Repair left femoral hernia Indications: The patient is a 70-year-old female with a known left groin hernia. This has become incarcerated several times in the past. Every other time but was able to be reduced. She developed a bulge today after lunch. This pain became more severe so she came in to be seen. The hernia was unable to be reduced. CT showed a femoral hernia containing small bowel. Because of the risk of bowel compromise, she was taken to the OR emergently this evening. Procedure Description: After discussing the risks and benefits of the procedure, the patient signed informed consent.? The operative site was marked and the patient was brought to the operating room and placed on the operating table in supine position.? Care was taken to pad the patient's pressure points.?? The patient was then intubated by anesthesia.?? The operative site was then prepped and draped in the usual sterile fashion.? A time-out was then performed. An incision was made over the patient's left groin. Dissection was taken down t o the subcutaneous tissue. The large, firm hernia bulge was difficult to dissect around, so I 1st identified the external oblique superior to this. I was able to trace this down with my finger to the hernia itself. This was exiting inferior to the inguinal ligament, consistent with a femoral hernia. I then continued my dissection, eventually reaching the hernia sac. This was then opened and bloody fluid was contained within as well as a knuckle of small bowel which was black. This was unable to be reduced. Knowing that I would have to resect the small bowel, I elected then to create a lower midline incision. Dissection was taken down through the subcutaneous fat using cautery. The fascia was entered in the midline. This was divided with cautery. The peritoneum was then entered. An Bryon wound retractor was placed in the wound. Once the abdomen was entered the hernia was easily identified. I was unable to reduce hernia from the inside. Moving my attention back to the left groin incision, I retracted the bowel which was strangulated laterally, and I dissected down to the fascia medially. Using a right angle, I was able to slip into the fascia of the hernia and used cautery to incise the fascia slightly towards Mark's ligament. Once this happened I was then able to reduce the hernia. The small bowel began to pink up, however there were still black hemorrhagic/ ischemic areas. The area of compromise measured approximately 5 cm. The bowel was run and appeared to be located in the mid small bowel/distal jejunum. I then proceeded to resect this area of ischemic bowel. A mesenteric window was created both proximal and distal to the ischemic area. An Endo-VIELKA stapler was used to transect the bowel on either side. The mesentery was ligated and divided with ties. The specimen was sent to pathology. I then brought 2 ends together and placed a stay stitch. Enterotomies were then created on either end of the bowel. Through this I passed a blue load VIELKA stapler. This was fired creating a 60 cm anastomosis. The stapler was removed. The staple line was examined. There was bleeding noted on the staple line on the proximal side closest to the mesentery. This was oversewn with several silk [id number] sutures resulting hemostasis. Once this was done the enterotomy was closed with 3-0 silk interrupted imbricating Lembert sutures. The anastomosis was examined and appeared widely patent. The mesenteric window was small, however the edge was somewhat oozy so this was closed with Vicryl suture. This resulted in excellent hemostasis. The anastomosis was placed into the abdomen. We then changed gloves and instruments and turned our attention to repair of the hernia. First, the external oblique fascia was incised. This exposed the inguinal floor. I began by identifying the shelving edge of the inguinal ligament as well as Mark's ligament. The tissue here was frayed and of questionable quality, however I was able to close the defect from the shelving edge of the inguinal ligament to Mark's ligament. I used interrupted 0 Nurolon suture starting medially and moving laterally toward the femoral sheath. The hernia defect was quite small, only approximately 1.5 cm. Once this was completely closed, I was able to palpate from the inside as well as the outside and the defect was closed. Rather than continue with a complete tissue repair given the quality of the tissue, I decided to use pre-peritoneal absorbable mesh to complete the repair. I then reapproximated the external oblique fascia with 2 0 Vicryl in a running fashion. The wound was irrigated and closed with 3-0 Vicryl in Douglas's fascia and 3-0 Vicryl dermal with 4-0 Monocryl running subcuticular suture. I then turned my attention back to the abdomen. I again examined the anastomosis. It appeared intact, patent and well perfused. I irrigated the abdomen with sterile saline. The patient had not gotten a Sawant preoperatively, therefore the nursing staff did place a Sawant intraoperatively given that the bladder was full and I wish to place mesh in the preperitoneal space. Once this was done and the bladder was decompressed, I then opened the peritoneum on the left and created a preperitoneal plane as is done in a laparoscopic repair. The peritoneum was dissected free from the anterior abdominal wall in the plane posterior to the rectus muscle and the epigastrics. Mark's ligament was then exposed posteriorly. The round ligament was encountered. This was divided and ligated with sutures. once I had dissected out laterally past the internal ring, I then placed a piece of Phasix mesh in this space. This was sutured at Mark's ligament. Once this was done, I closed the fascia with running looped 0 Maxon suture. This was done in such a way to also close the peritoneum over the mesh. Anesthesia remove the patient's NG tube prior to extubation. The skin was then closed with 3-0 Vicryl dermal and 4-0 Monocryl running subcuti cular suture. Sterile dressings were then applied. Instrument sponge and needle counts were correct at the end of the case. ? The patient was then woken and transported to the recovery area in stable condition. ? The patient tolerated the procedure well. Findings: Small femoral hernia with a knuckle of ischemic strangulated bowel. Anesthesia: GETA Surgeon: Dolly Paul MD Estimated blood loss (mL): 25 Additional Specimen Information: Small bowel segment. Condition: stable Disposition: PACU
--- NOTE | 2023-10-18 00:34 | P.ANES_ITS ---
Anesthesia Charges Start Date/Time Anesthesia Start Date: 10/17/23 Anesthesia Start Time: 21:28 Stop Date/Time Anesthesia Stop Date: 10/18/23 Anesthesia Stop Time: 00:27 Summary Emergency: SEGMENT BLOCK LAYER
[2023-10-18] MEDS: ONDANSETRON 2 MG/ML inj 4 MG IVP (00:58)
[2023-10-18] MEDS: HYDROmorphone 0.5 mg/0.5 ml inj IVP ×6 (01:42→16:43)
--- NOTE | 2023-10-18 07:35 | PC.NURSE ---
ADMISSION NOTE: Pt back from PACU at 0116, pleasant, drowsy, A&O. Bowel sounds hypoactive, dressings to abdomen intact with no drainage. Pt denied nausea, SOB, CP. PRN Dilaudid given as needed for pain with pt reporting relief. Ice pack to op site. Turned and repositioned with a 2 assist. VSS on RA.
[2023-10-18] MEDS: ONDANSETRON 2 MG/ML inj IVP (09:07)
[2023-10-18] MEDS: LACTATED RINGERS 1000 ML 1,000 ML 500 ML IV (11:34)
--- NOTE | 2023-10-18 12:51 | PM.GSPN ---
Subjective Subjective Date Seen: 10/18/23 Interval history: Britt is stable today. This morning blood pressure was low so blood pressure meds were held. She has not felt the urge to void since surgery. She did get a bolus this morning. She still does not feel the urge. She had 275 in her bladder on bladder scan. She states that she urinated 3 times before she went to the OR, however her bladder was quite full in the operating room. She has some GERD symptoms. She feels nauseated today. Pain is controlled. She has not been up walking around. Denies chest pain or shortness of breath. Does have some throat soreness. Exam Narrative: Exam Narrative: General: No acute distress CV: Regular rate and rhythm Respiratory: Clear to auscultation bilateral Abdomen: Dressings are clean, dry and intact. No significant distention. Const: Vital Signs, click to edit/add: Vital Signs - 24 hr 10/17/23 15:56 10/17/23 16:58 10/17/23 17:00 Temperature 97.2 F L Pulse Rate 54 L 50 L Pulse Rate [Pulse Oximeter] 68 Respiratory Rate 18 Blood Pressure Blood Pressure [Le ft Arm] Blood Pressure [Ri ght Upper Arm] 166/85 H Pulse Oximetry 96 92 96 Oxygen Delivery Me thod Room Air Oxygen Flow Rate 10/17/23 17:18 10/17/23 17:30 10/17/23 18:21 Temperature Pulse Rate 57 L 69 Pulse Rate [Pulse Oximeter] Respiratory Rate Blood Pressure Blood Pressure [Le ft Arm] Blood Pressure [Ri ght Upper Arm] Pulse Oximetry 99 97 96 Oxygen Delivery Me thod Oxygen Flow Rate 10/17/23 18:30 10/17/23 19:00 10/17/23 19:00 Temperature Pulse Rate 69 71 Pulse Rate [Pulse Oximeter] Respiratory Rate Blood Pressure Blood Pressure [Le ft Arm] Blood Pressure [Ri ght Upper Arm] Pulse Oximetry 88 97 97 Oxygen Delivery Me thod Nasal Cannula Oxygen Flow Rate 10 10/18/23 00:22 10/18/23 00:27 10/18/23 00:32 Temperature 97.5 F L Pulse Rate 67 68 66 Pulse Rate [Pulse Oximeter] Respiratory Rate 16 18 18 Blood Pressure 145/77 H 136/71 124/67 Blood Pressure [Le ft Arm] Blood Pressure [Ri ght Upper Arm] Pulse Oximetry 98 99 99 Oxygen Delivery Me thod Nasal Cannula Nasal Cannula Nasal Cannula Oxygen Flow Rate 8 8 8 10/18/23 00:37 10/18/23 00:42 10/18/23 00:47 Temperature 97.2 F L Pulse Rate 64 68 70 Pulse Rate [Pulse Oximeter] Respiratory Rate 18 18 18 Blood Pressure 113/76 135/73 113/73 Blood Pressure [Le ft Arm] Blood Pressure [Ri ght Upper Arm] Pulse Oximetry 99 99 99 Oxygen Delivery Me thod Nasal Cannula Room Air Nasal Cannula Oxygen Flow Rate 8 10/18/23 00:54 10/18/23 01:15 10/18/23 01:16 Temperature 97.0 F L 97.0 F L Pulse Rate 68 Pulse Rate [Pulse Oximeter] Respiratory Rate 18 18 18 Blood Pressure 131/71 Blood Pressure [Le ft Arm] 130/69 130/69 Blood Pressure [Ri ght Upper Arm] Pulse Oximetry 99 93 93 Oxygen Delivery Me thod Nasal Cannula Room Air Room Air Oxygen Flow Rate 10/18/23 01:30 10/18/23 01:45 10/18/23 02:00 Temperature 97.0 F L 97.0 F L 97.1 F L Pulse Rate Pulse Rate [Pulse Oximeter] Respiratory Rate 16 18 18 Blood Pressure Blood Pressure [Le ft Arm] 135/73 145/73 H 135/67 Blood Pressure [Ri ght Upper Arm] Pulse Oximetry 96 95 95 Oxygen Delivery Me thod Room Air Room Air Room Air Oxygen Flow Rate 10/18/23 02:00 10/18/23 02:15 10/18/23 02:30 Temperature 97.3 F L 97.2 F L Pulse Rate Pulse Rate [Pulse Oximeter] Respiratory Rate 18 16 18 Blood Pressure Blood Pressure [Le ft Arm] 126/62 114/65 Blood Pressure [Ri ght Upper Arm] Pulse Oximetry 97 94 94 Oxygen Delivery Me thod Room Air Room Air Room Air Oxygen Flow Rate 10/18/23 03:00 10/18/23 03:30 10/18/23 04:00 Temperature 97.6 F 97.7 F 97.8 F Pulse Rate Pulse Rate [Pulse Oximeter] Respiratory Rate 18 18 18 Blood Pressure Blood Pressure [Le ft Arm] 115/62 108/59 L 126/70 Blood Pressure [Ri ght Upper Arm] Pulse Oximetry 96 97 96 Oxygen Delivery Me thod Room Air Room Air Room Air Oxygen Flow Rate 10/18/23 05:00 10/18/23 06:00 10/18/23 08:00 Temperature 97.7 F 97.6 F Pulse Rate Pulse Rate [Pulse Oximeter] Respiratory Rate 18 18 Blood Pressure Blood Pressure [Le ft Arm] 100/59 L 100/60 Blood Pressure [Ri ght Upper Arm] Pulse Oximetry 97 96 94 Oxygen Delivery Me thod Room Air Room Air Oxygen Flow Rate 10/18/23 08:00 Temperature Pulse Rate Pulse Rate [Pulse Oximeter] Respiratory Rate 18 Blood Pressure Blood Pressure [Le ft Arm] Blood Pressure [Ri ght Upper Arm] Pulse Oximetry Oxygen Delivery Me thod Oxygen Flow Rate Progress Note:A&P Assessment and plan (1) Hiatal hernia: Status: Acute (2) Small bowel obstruction: Status: Acute (3) Incarcerated left inguinal hernia: Status: Acute (4) Stricture of esophagus: Status: Acute (5) S/P small bowel resection: Status: Acute Plan The patient is a 78-year-old female who is postop day 1 from ex lap and femoral hernia repair with small bowel resection for strangulated femoral hernia. -mild hypotension this morning. Home blood pressure meds are on hold for now. Blood pressure is now appropriate. No tachycardia. -has not urinated since surgery. This is going on 12 hours. Bladder scan for 300. Patient received a bolus. We are going to try to see if she can urinate now and if not she may need a Sawant. -morning labs not drawn. We will obtain labs now and follow-up. -holding on DVT prophylaxis until hemoglobin. -have encouraged patient to use IS and will try to get her ambulating today. -will start an acid blocking medication. She takes as p.r.n. at home. Discussed that she may consider discussion of hiatal hernia repair as an outpatient.
[2023-10-18 13:08] LABS: Hematocrit 36.7 % (33.0-51.0); Hemoglobin* 12.1 gm/dL (12.0-16.0); Immature Granulocytes Abs Auto 0.02 K/uL (0.00-0.30); Immature Granulocytes Pct Auto 0.2 %; Lymphocytes Percent Auto 8.3 % (20-44); Mean Corpuscular HGB Conc 33 gm/dL (32-36); Mean Corpuscular Hemoglobin 29 pg (26-34); Mean Corpuscular Volume 88 fL (80-100); Neutrophils Percent Auto 85.5 % (42.0-72.0); Platelet Count* 240 K/uL (140-440); RDW Coefficient of Variation % 13.4 % (11.5-15.5); Red Blood Count 4.18 m/uL (4.00-5.20); White Blood Count* 10.59 K/uL (4.50-11.00)
[2023-10-18 13:10] LABS: Slide Review Reflex No
[2023-10-18 13:23] LABS: Chloride* 100 mmol/L (96-114); Potassium* 3.2 mmol/L (3.6-5.1); Sodium* 134 mmol/L (135-149)
[2023-10-18 13:25] LABS: Creatinine* 0.6 mg/dL (0.5-1.5); Est. Creatinine Clearance* 40.04; Estimated Glomerular Filt Rate 92 ml/min
[2023-10-18 13:26] LABS: Anion Gap 8 mEq/L (7-15); Blood Urea Nitrogen* 16 mg/dL (7-30); Calcium* 8.6 mg/dL (8.4-10.6); Carbon Dioxide* 26 mmol/L (20-32); Glucose* 135 mg/dL (60-115)
[2023-10-18] MEDS: POTASSIUM CHLORIDE 10 MEQ/100 ML PIGGYBACK 100 MEQ IVPB ×2 (13:53→15:56)
[2023-10-18] MEDS: HYDROCODONE-ACETAMIN 5-325 MG 1 TAB PO ×2 (15:35→21:45)
--- NOTE | 2023-10-18 15:45 | PC.NURSE ---
PATIENT'S ABDOMINAL PAIN CONTROLLED WITH DILAUDID. ATTEMPTED SIPS OF CLEARS BUT REPORTED NAUSEA WHICH WAS IMPROVED WITH ZOFRAN. ENCOURAGED SIPS OF WATER AND ICE CHIPS. BOWEL SOUNDS HYPOACTIVE BUT DENIED PASSING GAS. UP WITH A2 TO RECLINER AND BATHROOM. ACTIVE ICE TO ABDOMEN. DRESSINGS TO ABDOMEN CDI. PATIENT WAS UNABLE TO VOID AND SIMON PLACED PER .
[2023-10-18] MEDS: ROSUVASTATIN CALCIUM 10 MG TABLET 5 MG PO (21:45)
[2023-10-18] MEDS: ERTAPENEM 1 GM in 0.9 % SODIUM CHLORIDE Mini-bag 100 ML IVPB (21:46)
--- NOTE | 2023-10-18 23:16 | PC.NURSE ---
End of Shift: Pt pleasant and cooperative throughout shift, reported pain between 7-8/10. Improved with [place]*2 and dilaluded*1. Headache and abdominal pain returned, second dose of [place] administered. Pain improved, pt able to sleep. Family at bedside for some time. Sawant catheter remained in place, patent, draining well. VS WNL. IV remained patent, tolerating infusion well. Pt did not eat during shift, ice chips and water only. No BM, not passing flatus.
[2023-10-19] VITALS (7 sets, daily range): BP systolic 119–152; BP diastolic 68–89; PULSE 63–73; RESP 16–18; TEMP 36.5–36.8; O2SAT 92–95
[2023-10-19] MEDS: LACTATED RINGERS 1000 ML 1,000 ML 125 ML IV ×3 (02:18→17:18)
[2023-10-19] MEDS: HYDROCODONE-ACETAMIN 5-325 MG 1 TAB PO ×6 (02:18→23:20)
--- NOTE | 2023-10-19 06:53 | PC.NURSE ---
23-07: pleasant and cooperative. Rating pain 5-8/10, see eMAR, active ice to abd.?Denies nausea. Bowel tones hypoactive. Dressing to abd CDI.
[2023-10-19 06:54] LABS: Basophils Absolute Auto 0.02 K/uL (0.00-0.30); Basophils Percent Auto 0.3 % (0.0-3.0); Hematocrit 33.3 % (33.0-51.0); Hemoglobin* 11.1 gm/dL (12.0-16.0); Immature Granulocytes Abs Auto 0.02 K/uL (0.00-0.30); Immature Granulocytes Pct Auto 0.3 %; Lymphocytes Percent Auto 12.8 % (20-44); Mean Corpuscular HGB Conc 33 gm/dL (32-36); Mean Corpuscular Hemoglobin 30 pg (26-34); Mean Corpuscular Volume 89 fL (80-100); Monocytes Percent Auto 6.7 % (0.0-11.0); Neutrophils Percent Auto 79.9 % (42.0-72.0); Platelet Count* 216 K/uL (140-440); RDW Coefficient of Variation % 13.7 % (11.5-15.5); Red Blood Count 3.76 m/uL (4.00-5.20); White Blood Count* 7.92 K/uL (4.50-11.00)
[2023-10-19 07:15] LABS: Slide Review Reflex No
[2023-10-19 07:17] LABS: Chloride* 104 mmol/L (96-114); Potassium* 3.2 mmol/L (3.6-5.1); Sodium* 135 mmol/L (135-149)
[2023-10-19 07:20] LABS: Anion Gap 6 mEq/L (7-15); Blood Urea Nitrogen* 13 mg/dL (7-30); Calcium* 8.1 mg/dL (8.4-10.6); Carbon Dioxide* 25 mmol/L (20-32); Creatinine* 0.6 mg/dL (0.5-1.5); Est. Creatinine Clearance* 40.04; Estimated Glomerular Filt Rate 92 ml/min; Glucose* 109 mg/dL (60-115)
[2023-10-19] MEDS: FAMOTIDINE 20 MG TABLET PO (08:48)
[2023-10-19] MEDS: TRIAMTERENE-HCTZ 37.5-25 MG TB 1 TAB PO (08:48)
[2023-10-19] MEDS: POTASSIUM CHLORIDE 10 MEQ/100 ML PIGGYBACK 80 MEQ IVPB ×2 (10:39→11:53)
--- NOTE | 2023-10-19 11:59 | PC.NURSE ---
Pt A&O, afebrile and VSS. Pt is Ax1 with gait belt and 2ww for ambulation. Per Dr. Jaimes- pt is to walk this afternoon and pt is okay to utilize eye drops brought in from home located in her room. Midline and left lateral abdominal dressings C/D/I and active ice applied with education provided to apply 20min/remove 20min. PIV in right wrist C/D/I with LR infusing at 125 mL/hr. PRN Crivitz providing adequate pain relief, last given @ 1040. Potassium 3.4 this AM; replaced with 20 mEq IV doses. Sawant catheter C/D/I draining clear, yellow urine- total output this mornin mL.
--- NOTE | 2023-10-19 12:07 | P.GSPN_ITS ---
Subjective Subjective Date Seen: 10/19/23 Interval history: Sawant placed yesterday with 600 mL out. Has had good urine output since. Pain is controlled on oral meds though she is reluctant to get out of bed other than up to the chair. Nausea is better today. She was able to taken for off this morning. Has not been using IS. Exam Narrative: Exam Narrative: General: No acute distress CV: Regular rate and rhythm Respiratory: Clear bilaterally Abdomen: Mildly distended. Appropriately tender for the postop state. Incisions are clean and dry without erythema. Const: Vital Signs, click to edit/add: Vital Signs - 24 hr 10/18/23 15:00 10/18/23 15:00 10/18/23 15:00 Temperature 97.7 F Pulse Rate [Apical ] 63 63 Respiratory Rate 18 18 Blood Pressure [Le ft Arm] 145/75 H Blood Pressure [Ri ght Arm] Pulse Oximetry 95 95 Oxygen Delivery Me thod Room Air 10/18/23 19:00 10/18/23 23:00 10/18/23 23:00 Temperature 97.7 F Pulse Rate [Apical ] 69 Respiratory Rate 18 18 Blood Pressure [Le ft Arm] 150/77 H Blood Pressure [Ri ght Arm] Pulse Oximetry 94 92 Oxygen Delivery Me thod Room Air 10/19/23 02:29 10/19/23 07:00 10/19/23 07:00 Temperature 98.1 F Pulse Rate [Apical ] 70 64 Respiratory Rate 18 18 Blood Pressure [Le ft Arm] 137/82 Blood Pressure [Ri ght Arm] Pulse Oximetry 92 95 Oxygen Delivery Me thod Room Air 10/19/23 07:00 10/19/23 11:00 Temperature 98.1 F 98.1 F Pulse Rate [Apical ] 64 64 Respiratory Rate 18 18 Blood Pressure [Le ft Arm] 152/82 H Blood Pressure [Ri ght Arm] 119/68 Pulse Oximetry 95 92 Oxygen Delivery Me thod Room Air Room Air Labs/Imaging Labs Labs: White blood cell count normal. Hemoglobin is 11 from 12. Potassium is 3.2. Progress Note:A&P Assessment and plan (1) S/P small bowel resection: Status: Acute (2) Hiatal hernia: Status: Acute (3) History of femoral hernia repair: Status: Acute (4) HTN (hypertension): Status: Acute (5) Hypokalemia: Status: Acute Plan The patient is an 78-year-old female postop day 2 status post small bowel resection and repair femoral hernia for incarcerated femoral hernia with strangulated small bowel. Overall doing well. -replace potassium today for hypokalemia -continue home antihypertensives and statin. -patient may take home eye medication supplements, however I advised her that she does not need to take any of her other supplements. -clear diet until nausea completely resolves and return of bowel function -p.r.n. Tylenol/[place] for pain -encourage patient that she should ambulate in the halls today with nursing staff. Also should be using incentive spirometry every hour. -continue maintenance fluids until taking p.o. -continue Sawant for now for urinary retention. -H2 heather for reflux
[2023-10-19] MEDS: ROSUVASTATIN CALCIUM 10 MG TABLET 5 MG PO (21:31)
[2023-10-19] MEDS: ERTAPENEM 1 GM in 0.9 % SODIUM CHLORIDE Mini-bag 100 ML IVPB (21:32)
[2023-10-19] MEDS: ENOXAPARIN 40 MG/0.4 ML INJ SUBCUT (21:32)
--- NOTE | 2023-10-19 23:08 | PC.NURSE ---
End of Shift: Pt pleasant and cooperative, AO throughout shift. Pain reported between 4-6/10, well controlled with norco. Sawant catheter remained in place, patent, draining well. Pt ambulates well with walker, SBA. No BM, no flatus. Pt encouraged to ambulate.
[2023-10-20] MEDS: LACTATED RINGERS 1000 ML 1,000 ML 125 ML IV (00:18)
--- NOTE | 2023-10-20 00:29 | PC.NURSE ---
Pt O2 sat noted to be as low as 86% on RA at approximately 0000. Staff have since started pt on 1 liter of oxygen via NC. No respiratory distress noted and pt is noted to have cold fingers. O2 sat 94% on 1 liter via NC at this time.
[2023-10-20 03:15] VITALS: BP 137/75; PULSE 66; RESP 16; TEMP 36.6; O2SAT 93
[2023-10-20] MEDS: HYDROCODONE-ACETAMIN 5-325 MG 1 TAB PO ×3 (05:50→20:44)
--- NOTE | 2023-10-20 06:56 | PC.NURSE ---
End of shift note [id number]: Pt alert & oriented x 4 and able to make needs known. No s/s of infection observed to abdominal incisions as areas currently TESTER ELECTRONIC SCALE with steri strips in place. PRN [place] and ice given for pain control. Pt requested SCDs be taken off last evening, reporting that these keep her awake and has still been refusing to have these on when approached. Sawant catheter remains in place and pt remains on LR at 125 mL/hr. CL diet currently in place. Bowel sounds noted to be hypoactive x 4 and pt states she is not yet passing gas when asked. Oxygen administered at 1 LPM during the night as pt?s O2 sat noted to drop as low as 86% when on RA. Pt has been afebrile throughout the shift. LS clear to all lobes bilaterally. Pt does report nonproductive cough when asked though states she has a chronic dry cough. IV to R wrist noted to have small amount of bloody drainage at site after she bumped it obtaining daily weight though IV noted to be flushing well. Pt needs encouragement to get out of bed and was noted to be crying this morning before even getting out of bed. NAYELY said she had made conversation with pt regarding armstrong in room when pt became emotional and started crying. She then reported 10/10 abdominal pain after movement and was given two tabs PRN [place]. Pt now reporting pain 6/10 when reassessed though declining IV Dilaudid when offered. No N/V noted this shift. Pt denied shortness of breath and CP when asked.
[2023-10-20 06:57] LABS: Basophils Absolute Auto 0.02 K/uL (0.00-0.30); Basophils Percent Auto 0.3 % (0.0-3.0); Eosinophils Absolute Auto 0.01 K/uL (0.00-0.50); Eosinophils Percent Auto 0.2 % (0.0-7.0); Hematocrit 34.4 % (33.0-51.0); Hemoglobin* 11.3 gm/dL (12.0-16.0); Immature Granulocytes Abs Auto 0.01 K/uL (0.00-0.30); Immature Granulocytes Pct Auto 0.2 %; Lymphocytes Percent Auto 24.3 % (20-44); Mean Corpuscular HGB Conc 33 gm/dL (32-36); Mean Corpuscular Hemoglobin 29 pg (26-34); Mean Corpuscular Volume 89 fL (80-100); Monocytes Percent Auto 7.9 % (0.0-11.0); Neutrophils Absolute Auto 4.14 K/uL (1.7-7.0); Neutrophils Percent Auto 67.1 % (42.0-72.0); Platelet Count* 231 K/uL (140-440); RDW Coefficient of Variation % 13.3 % (11.5-15.5); Red Blood Count 3.88 m/uL (4.00-5.20); White Blood Count* 6.17 K/uL (4.50-11.00)
[2023-10-20 07:17] LABS: Chloride* 102 mmol/L (96-114); Sodium* 136 mmol/L (135-149)
[2023-10-20 07:20] LABS: Anion Gap 6 mEq/L (7-15); Blood Urea Nitrogen* 11 mg/dL (7-30); Carbon Dioxide* 28 mmol/L (20-32); Creatinine* 0.7 mg/dL (0.5-1.5); Est. Creatinine Clearance* 40.04; Estimated Glomerular Filt Rate 88 ml/min; Glucose* 94 mg/dL (60-115)
[2023-10-20 07:21] LABS: Calcium* 8.5 mg/dL (8.4-10.6)
[2023-10-20 07:25] LABS: Slide Review Reflex No
[2023-10-20 07:30] VITALS: BP 136/72; PULSE 71; RESP 16; TEMP 36.8; O2SAT 93; O2SAT 94
[2023-10-20] MEDS: FAMOTIDINE 20 MG TABLET PO (08:43)
[2023-10-20] MEDS: TRIAMTERENE-HCTZ 37.5-25 MG TB 1 TAB PO (08:43)
[2023-10-20] MEDS: LACTATED RINGERS 1000 ML 1,000 ML 75 ML IV (09:22)
[2023-10-20] MEDS: POTASSIUM CHLORIDE 10 MEQ/100 ML PIGGYBACK 100 MEQ IVPB (09:22)
[2023-10-20] MEDS: POTASSIUM CHLORIDE 10 MEQ/100 ML PIGGYBACK 70 MEQ IVPB ×2 (10:30→12:26)
--- NOTE | 2023-10-20 11:02 | PM.GSPN ---
Subjective Subjective Date Seen: 10/20/23 Interval history: Britt is doing well today. Has not had any nausea since yesterday. Tolerating clears. She has been up walking in the hallway. She is still taking her [place] every 4 hours. Overnight after getting the [place] she was sleepy and did require some oxygen. Pain is getting better. Exam Narrative: Exam Narrative: General: No acute distress CV: Regular rate and rhythm Respiratory: Clear to auscultation bilaterally Abdomen: Faint bowel sounds present. Incisions are clean and dry without erythema. Const: Vital Signs, click to edit/add: Vital Signs - 24 hr 10/19/23 15:00 10/19/23 15:00 10/19/23 15:00 Temperature 97.7 F Pulse Rate [Apical ] 63 63 Respiratory Rate 16 16 Blood Pressure [Le ft Arm] Blood Pressure [Ri ght Arm] 151/81 H Pulse Oximetry 94 94 Oxygen Delivery Me thod Room Air Oxygen Flow Rate 10/19/23 19:00 10/19/23 23:00 10/19/23 23:20 Temperature 97.8 F Pulse Rate [Apical ] 73 70 Respiratory Rate 16 18 Blood Pressure [Le ft Arm] Blood Pressure [Ri ght Arm] 148/89 H Pulse Oximetry 94 92 Oxygen Delivery Me thod Room Air Oxygen Flow Rate 10/19/23 23:20 10/20/23 03:15 10/20/23 07:30 Temperature 98.2 F 97.9 F Pulse Rate [Apical ] 70 66 Respiratory Rate 18 16 Blood Pressure [Le ft Arm] 140/74 H 137/75 Blood Pressure [Ri ght Arm] Pulse Oximetry 92 93 94 Oxygen Delivery Me thod Room Air Nasal Cannula Oxygen Flow Rate 1 10/20/23 07:30 Temperature 98.2 F Pulse Rate [Apical ] 71 Respiratory Rate 16 Blood Pressure [Le ft Arm] 136/72 Blood Pressure [Ri ght Arm] Pulse Oximetry 93 Oxygen Delivery Me thod Nasal Cannula Oxygen Flow Rate 1 Labs/Imaging Labs Labs: Potassium 3.0 despite replacement yesterday. Hemoglobin stable. White blood cell count normal. Progress Note:A&P Assessment and plan (1) Hypokalemia: Status: Acute Assessment and Plan: Persistent despite replacement yesterday. Have added potassium to maintenance fluids and also replacing IV. Will recheck in the morning. If it remains low, may be able to replace orally. (2) Hiatal hernia: Status: Acute Assessment and Plan: History of esophageal stricture and GERD. Traumatic NG placement on admission. Continue PPI. (3) S/P small bowel resection: Status: Acute Assessment and Plan: Awaiting return of bowel function. She does have some bowel sounds on exam and no further nausea. Advance diet to full liquids. She understands that she should go slow with this. Large amount of urine reported, will decrease maintenance fluids today. Saline lock when she is taking adequate p.o.. (4) History of femoral hernia repair: Status: Acute Assessment and Plan: Recovering well. No signs or symptoms of infection at this site. Will stop IV antibiotics today. Continue [place] for pain. Encourage patient to decrease intervals as she is able. (5) Urinary retention: Status: Acute Assessment and Plan: Sawant placed on postop day 1 for urinary retention. The patient states she voided multiple times preop however she did have a distended bladder intraop as well. Likely chronic urinary retention. Will wait until getting closer to discharge before trial of void. I explained to the patient that there is a risk of urinary tract infection with the catheter in place, however and I do not want to maynard to DC the Sawant just yet based on her clinical picture of possible baseline retention. Plan Continue IS and ambulation Continue Lovenox for DVT prophylaxis
[2023-10-20 12:30] VITALS: BP 157/83; PULSE 68; RESP 18; TEMP 37; O2SAT 97
[2023-10-20] MEDS: 0.9 % SODIUM CH + KCL 20 mEq/L 1,000 ML 75 ML IV (13:47)
[2023-10-20 15:00] VITALS: BP 145/82; PULSE 66; RESP 18; TEMP 36.7; O2SAT 95
[2023-10-20 20:28] VITALS: BP 173/97; PULSE 76; RESP 20; TEMP 36.6; O2SAT 94
[2023-10-20] MEDS: ROSUVASTATIN CALCIUM 10 MG TABLET 5 MG PO (20:33)
[2023-10-20] MEDS: ENOXAPARIN 40 MG/0.4 ML INJ SUBCUT (20:33)
[2023-10-20 23:00] VITALS: RESP 20; O2SAT 94
[2023-10-21 01:52] VITALS: BP 139/77; PULSE 79; RESP 18; TEMP 36.8; O2SAT 92
[2023-10-21] MEDS: ACETAMINOPHEN 325 MG TABLET 650 MG PO ×3 (01:59→17:48)
[2023-10-21] MEDS: 0.9 % SODIUM CH + KCL 20 mEq/L 1,000 ML 75 ML IV (02:00)
--- NOTE | 2023-10-21 06:29 | PC.NURSE ---
[id number]: Patient pleasant and cooperative. Walk in [place] x1. Provided education on importance of ambulation. BS hypo. Not passing gas and no BM per patient. Denies N/V. Tolerating clears and a couple bites of fulls. Using IS. Sawant patent. Tylenol for headache. [place] x1 for 6/10 abdominal pain.
[2023-10-21 06:31] LABS: Basophils Absolute Auto 0.01 K/uL (0.00-0.30); Basophils Percent Auto 0.2 % (0.0-3.0); Eosinophils Absolute Auto 0.01 K/uL (0.00-0.50); Eosinophils Percent Auto 0.2 % (0.0-7.0); Hemoglobin* 10.3 gm/dL (12.0-16.0); Immature Granulocytes Abs Auto 0.01 K/uL (0.00-0.30); Immature Granulocytes Pct Auto 0.2 %; Lymphocytes Absolute Auto 1.31 K/uL (0.90-2.90); Lymphocytes Percent Auto 27.2 % (20-44); Mean Corpuscular HGB Conc 33 gm/dL (32-36); Mean Corpuscular Hemoglobin 29 pg (26-34); Mean Corpuscular Volume 87 fL (80-100); Monocytes Percent Auto 8.3 % (0.0-11.0); Neutrophils Absolute Auto 3.08 K/uL (1.7-7.0); Neutrophils Percent Auto 63.9 % (42.0-72.0); Platelet Count* 225 K/uL (140-440); Red Blood Count 3.55 m/uL (4.00-5.20); White Blood Count* 4.82 K/uL (4.50-11.00)
[2023-10-21 06:37] LABS: Slide Review Reflex No
[2023-10-21 07:00] VITALS: BP 133/78; PULSE 75; RESP 16; TEMP 36.7; O2SAT 96
[2023-10-21 07:01] LABS: Chloride* 105 mmol/L (96-114); Potassium* 3.3 mmol/L (3.6-5.1); Sodium* 135 mmol/L (135-149)
[2023-10-21 07:03] LABS: Creatinine* 0.6 mg/dL (0.5-1.5); Est. Creatinine Clearance* 40.04; Estimated Glomerular Filt Rate 92 ml/min
[2023-10-21 07:04] LABS: Anion Gap 7 mEq/L (7-15); Blood Urea Nitrogen* 12 mg/dL (7-30); Calcium* 8.4 mg/dL (8.4-10.6); Carbon Dioxide* 23 mmol/L (20-32); Glucose* 80 mg/dL (60-115)
[2023-10-21] MEDS: TRIAMTERENE-HCTZ 37.5-25 MG TB 1 TAB PO (08:18)
[2023-10-21] MEDS: FAMOTIDINE 20 MG TABLET PO (08:18)
--- NOTE | 2023-10-21 10:55 | P.GSPN_ITS ---
Subjective Subjective Date Seen: 10/21/23 Interval history: Britt is doing better. Denies nausea. Tolerating full liquids. Feels as though she can not feel her bowels beginning to removal in abdomen. She has been up walking and doing IS. She has been trying to alternate [place] with T ylenol. Exam Narrative: Exam Narrative: General: No acute distress CV: Regular rate Respiratory: Clear bilaterally. Abdomen: Soft, appropriately tender for the postop state. Bowel sounds present. Incisions without erythema. Some ecchymosis noted. Const: Vital Signs, click to edit/add: Vital Signs - 24 hr 10/20/23 12:30 10/20/23 15:00 10/20/23 15:00 Temperature 98.6 F Pulse Rate [Apical ] 68 66 Respiratory Rate 18 18 Blood Pressure [Le ft Arm] Blood Pressure [Ri ght Arm] 157/83 H Pulse Oximetry 97 95 Oxygen Delivery Me thod Room Air 10/20/23 15:00 10/20/23 20:28 10/20/23 23:00 Temperature 98.0 F 97.8 F Pulse Rate [Apical ] 66 76 Respiratory Rate 18 20 Blood Pressure [Le ft Arm] Blood Pressure [Ri ght Arm] 145/82 H 173/97 H Pulse Oximetry 95 94 94 Oxygen Delivery Me thod Room Air Room Air 10/20/23 23:00 10/21/23 01:52 10/21/23 07:00 Temperature 98.2 F Pulse Rate [Apical ] 79 Respiratory Rate 20 18 Blood Pressure [Le ft Arm] Blood Pressure [Ri ght Arm] 139/77 Pulse Oximetry 92 96 Oxygen Delivery Me thod Room Air 10/21/23 07:00 10/21/23 07:00 Temperature 98.1 F Pulse Rate [Apical ] 75 75 Respiratory Rate 16 16 Blood Pressure [Le ft Arm] 133/78 Blood Pressure [Ri ght Arm] Pulse Oximetry 96 Oxygen Delivery Me thod Room Air Labs/Imaging Labs Labs: Potassium mildly low at 3.3 today. Progress Note:A&P Assessment and plan (1) Urinary retention: Status: Acute (2) Hypokalemia: Status: Acute (3) History of femoral hernia repair: Status: Acute (4) S/P small bowel resection: Status: Acute (5) Hiatal hernia: Status: Acute Plan The patient is a 78-year-old female who is postop day 4 from laparotomy and small-bowel resection and repair of incarcerated femoral hernia. She is doing well overall. Awaiting return of bowel function. -will decrease maintenance fluids as she has copious urine in her Sawant bag. We will plan on trial of void once she is moving her bowels and ready for discharge. -continue p.o. pain meds -continue full liquid diet until return of bowel function -will replace potassium orally today. Hypokalemia is improving. -continue ambulation and IS. -Lovenox/SCDs for DVT prophylaxis -continue H2 heather for GERD and hiatal hernia. Will likely need outpatient follow-up for possible EGD and referral to discuss hiatal hernia repair per patient's preference -anticipate discharge as soon as tomorrow again depending return of bowel function.
[2023-10-21 11:00] VITALS: BP 114/64; PULSE 75; RESP 16; TEMP 36.8; O2SAT 95
[2023-10-21] MEDS: 0.9 % SODIUM CH + KCL 20 mEq/L 1,000 ML 50 ML IV ×2 (11:31→16:40)
[2023-10-21] MEDS: POTASSIUM BICARB 25 MEQ EFFERVESCENT TAB PO ×2 (11:35→13:02)
[2023-10-21 13:22] LABS: Magnesium* 1.7 mg/dL (1.5-2.6)
[2023-10-21 15:00] VITALS: BP 134/74; PULSE 78; RESP 14; TEMP 36.9; O2SAT 94
--- NOTE | 2023-10-21 18:40 | PC.NURSE ---
End of shit : Pt A&O, afebrile and VSS today. PIV in left FA infusing 0.9% NS w/ 20 mEq K+ @ 50 mL/hr. Pt is SBA with gait belt and 2ww for ambulation and transfers. Pt c/o headache pain and abdominal pain rating at 4-5/10. PRN Tylenol given x2 doses today, last given @ 1750. Sawant catheter C/D/I and draining clear, pale yellow urine. Midline and left lateral abdominal incision lines marginalized with steri-strips intact. Pt had a large formed BM today. K+ was 3.3 > replaced with 25 mEq PO x2 doses. Pt tolerated full liquid diet today with no N/V. Family was at bedside for majority of the day.
[2023-10-21 19:35] VITALS: BP 138/74; PULSE 67; RESP 18; TEMP 36.6; O2SAT 94
[2023-10-21] MEDS: ROSUVASTATIN CALCIUM 10 MG TABLET 5 MG PO (21:22)
[2023-10-21] MEDS: ENOXAPARIN 40 MG/0.4 ML INJ SUBCUT (21:23)
[2023-10-21 23:00] VITALS: BP 143/81; PULSE 77; RESP 18; TEMP 36.6; O2SAT 94
[2023-10-22] MEDS: ACETAMINOPHEN 325 MG TABLET 650 MG PO ×2 (00:28→09:08)
[2023-10-22 03:00] VITALS: BP 155/85; PULSE 73; RESP 18; TEMP 36.9; O2SAT 95
[2023-10-22 06:53] LABS: Chloride* 107 mmol/L (96-114); Sodium* 137 mmol/L (135-149)
[2023-10-22 06:54] LABS: Potassium* 3.6 mmol/L (3.6-5.1)
[2023-10-22 06:56] LABS: Anion Gap 6 mEq/L (7-15); Carbon Dioxide* 24 mmol/L (20-32); Creatinine* 0.6 mg/dL (0.5-1.5); Est. Creatinine Clearance* 40.04; Estimated Glomerular Filt Rate 92 ml/min
[2023-10-22 06:57] LABS: Blood Urea Nitrogen* 9 mg/dL (7-30); Calcium* 8.7 mg/dL (8.4-10.6); Glucose* 92 mg/dL (60-115)
[2023-10-22 07:00] VITALS: BP 173/93; PULSE 75; PULSE 78; RESP 18; TEMP 36.8; O2SAT 96
--- NOTE | 2023-10-22 07:34 | PC.NURSE ---
Patient pleasant, alert and oriented. Given PRN Tylenol for c/o headache. Continues with full liquid diet. Sawant catheter patent and draining pale yellow urine. Good output. Patient tearful during night stating she had a meltdown reporting that her bedding was too heavy, all messed up?and she couldn't get it fixed. Heel Varnisher bedspread applied and bedding straightened.??
[2023-10-22] MEDS: TRIAMTERENE-HCTZ 37.5-25 MG TB 1 TAB PO (09:08)
[2023-10-22] MEDS: FAMOTIDINE 20 MG TABLET PO (09:08)
--- NOTE | 2023-10-22 09:58 | XR_ITS ---
Patient: JOSE SHEPPARD Facility:?[facility] Patient ID:?[id number] Site Patient ID:?[id number]. Site :?[id number] Study:?XRay-Chest 2V-10/22/2023 10:55:10 AM Ordering Physician:JACQUES Final Report: Indication: Cough Technique: PA and lateral views of the chest. Comparison: 12/18/2018 Findings: Low lung volumes. Normal cardiomediastinal silhouette. No focal consolidation, pleural effusions, or visualized pneumothorax. Moderate multilevel degenerative changes of the visualized spine. Impression: No acute cardiopulmonary disease. Dictated by Rodger Saldana MD @ 10/22/2023 11:22:26 AM Signed by:?Rodger Saldana MD @10/22/2023 11:22:26 AM (Electronic Signature)
[2023-10-22 11:00] VITALS: BP 130/75; PULSE 69; RESP 16; TEMP 36.8; O2SAT 94
--- NOTE | 2023-10-22 11:03 | PM.DS1 ---
DS: Providers Provider Date Seen: 10/22/23 Date of admission: 10/18/23 01:16 Primary care physician: Bassem Pitts MD Admitting Clinician: Dolyl Paul MD Consults: 10/19/23 12:12 Consult to Physical Therapy [CONS] Routine Comment: Reason(s) for PT Consult:: Evaluate and Treat Any Restrictions?:: No Restrictions Attending Physician on discharge: Dolly Paul MD DS: Diagnosis Discharge Diagnosis (1) Urinary retention: Status: Acute (2) Hypokalemia: Status: Acute (3) History of femoral hernia repair: Status: Acute (4) S/P small bowel resection: Status: Acute (5) Hiatal hernia: Status: Acute (6) Pulmonary infiltrate: Status: Acute DS: Summary Time Spent with Patient Time attestation: Total time spent providing and/or coordinating discharge services: Exam Narrative: Exam Narrative: General: No acute distress CV: Regular rate and rhythm Respiratory: Clear to auscultation bilaterally Abdomen: Incisions are clean and dry. Small ecchymosis noted superiorly on the femoral hernia site. Abdomen is appropriately tender for the postop state. Const: Vital Signs, click to edit/add: Vital Signs - 24 hr 10/21/23 15:00 10/21/23 15:00 10/21/23 15:00 Temperature 98.4 F Pulse Rate [Pulse Oximeter] 78 78 Respiratory Rate 14 14 Blood Pressure [Le ft Arm] 134/74 Blood Pressure [Ri ght Arm] Pulse Oximetry 94 94 Oxygen Delivery Me thod Room Air 10/21/23 19:35 10/21/23 23:00 10/21/23 23:00 Temperature 97.9 F 97.9 F Pulse Rate [Pulse Oximeter] 67 77 Respiratory Rate 18 18 Blood Pressure [Le ft Arm] Blood Pressure [Ri ght Arm] 138/74 143/81 H Pulse Oximetry 94 94 94 Oxygen Delivery Me thod Room Air Room Air 10/22/23 03:00 10/22/23 07:00 10/22/23 07:00 Temperature 98.5 F Pulse Rate [Pulse Oximeter] 73 78 Respiratory Rate 18 18 Blood Pressure [Le ft Arm] Blood Pressure [Ri ght Arm] 155/85 H Pulse Oximetry 95 96 Oxygen Delivery Me thod Room Air 10/22/23 07:00 Temperature 98.3 F Pulse Rate [Pulse Oximeter] 75 Respiratory Rate 18 Blood Pressure [Le ft Arm] Blood Pressure [Ri ght Arm] 173/93 H Pulse Oximetry 96 Oxygen Delivery Me thod Room Air DS: Data Data Completed and Pending Labs on day of discharge: Labs from last 24 hours 10/22/23 10/21/23 10/21/23 06:07 11:25 06:14 Sodium 137 Potassium 3.6 Chloride 107 Carbon Dioxide 24 Anion Gap 6 L BUN 9 Creatinine 0.6 Estimated Creat Clear 40.04 Estimated GFR 92 Glucose 92 Calcium 8.7 Magnesium 1.7 Lab Acknowledgement Test Added Discharge Plan Discharge Disposition: Home, Self-Care Date of Admission: 10/18/23 01:16 Primary Care Provider: Bassem Pitts Condition: Stable Anticipated Discharge Date/Time: 10/22/23 10:58 Discharge Medications: New hydrocodone-acetaminophen 5-325 mg Tablet 1 - 2 tab PO Q6H PRN (Reason: Pain) Qty: 25 0RF famotidine [Acid [employer] (famotidine)] 20 mg Tablet 20 mg PO DAILY Qty: 30 0RF levofloxacin 500 mg tablet 500 mg PO Q24H Qty: 7 0RF Continued coenzyme Q10 100 mg capsule 300 mg PO DAILY lutein extract-zeaxanthin ext 15-0.7 mg capsule 1 cap PO DAILY triamterene-hydrochlorothiazid 37.5-25 mg capsule 1 cap PO QAM Qty: 90 3RF omega 6-daz-mxs-fish oil [Fish Oil] 1,000 mg (120 mg-180 mg) capsule 1 cap PO DAILY rosuvastatin 5 mg tablet 5 mg PO HS Discharge Orders: Discharge Order (Routine); Ordered 10/22/23 Ordered By: Dolly Paul Patient Education: Famotidine (By mouth), Hydrocodone/Acetaminophen (By mouth), Levofloxacin (By mouth), Post-Operative Instructions: Hernia Repair Additional Instructions: CHERRY WILL CALL AFTER XRAY IS READ. Activity Level: Activity as Tolerated Activity Detail: No lifting more than 20 lb for 2 weeks Discharge Diet: Regular Follow Up Appointments: Bassem Pitts MD [Primary Care Provider] - 11/01/23 1:30 pm Dolly Paul MD [Staff Physician] - Forms: MyHealth Info Instructions Discharge Comments: Follow up with Primary care doctor within 2 weeks
[2023-10-22] MEDS: levoFLOXacin 500 MG TABLET PO (12:30)
--- NOTE | 2023-10-22 14:57 | PC.NURSE ---
Discharge note: Pt A&O, afebrile and VSS throughout the day today. Pt is up ad marcello with a 2ww in her room. Sawant catheter removed this morning & pt successfully voiding with no issues post removal. Pt had a large formed BM today. C/o some intermittent abdominal cramping. PRN Tylenol given last at 0910 for c/o headache. Pt continues to have a poor appetite but she did attempt a regular diet for lunch and tolerated it well. Denies having any nausea, dizziness or SOB. PIV in left FA removed, catheter intact. has been at bedside majority of the day. Discharge education was reviewed with both patient and who verbalized understanding. Patient discharged home accompanied by her via W/C at 1415. Pt condition stable at discharge and pain is under control. ?
== END 2023-10-22 14:15 | disposition home or self-care (01) | DRG 331 ==
LOC: ED 19:19 → OR 19:24 → MEDSURG 10-18 01:35 → OR 10-18 01:53 → MEDSURG 10-18 02:00
PROVIDERS: Admitting Provider Surgery; Emergency Provider Family Medicine; PCP Family Medicine; Visit Provider Surgery
PROC: 0DT80ZZ Resection of Small Intestine, Open Approach (ICD-10-PCS; principal; 2023-10-17 21:00)
DX: K41.40 Unilateral femoral hernia, with gangrene, not specified as recurrent (principal); E87.6 Hypokalemia; R33.9 Retention of urine, unspecified; K22.2 Esophageal obstruction; K21.9 Gastro-esophageal reflux disease without esophagitis; I10 Essential (primary) hypertension; K44.9 Diaphragmatic hernia without obstruction or gangrene
CPT/HCPCS: 00840; 36415; 51701; 71046; 74018; 74177; 80048; 80053; 83605; 83735; 85025; 86140; 88307; 93005; 94761; 97110; 97116; 97161; 97530; 99140; 99284; 99285; A9270; C1781; J0330; J0665; J1170; J1335; J1650; J2001; J2250; J2270; J2371; J2405; J2704; J2710; J3010; J3480; J7030; J7050; J7120; Q9967

== ENCOUNTER 2023-11-28 10:40 | Outpatient (CLI) | payer MEDICARE, SELFPAY ==
--- NOTE | 2023-11-28 12:08 | P.ANES_ITS ---
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
--- NOTE | 2023-11-28 12:14 | W.ANESCHARGE ---
Anesthesia Charges Start Date/Time Anesthesia Start Date: 11/28/23 Anesthesia Start Time: 11:43 Stop Date/Time Anesthesia Stop Date: 11/28/23 Anesthesia Stop Time: 12:00 Summary Extremes of Age - Over 70 or under 1: MDA
== END 2023-11-28 10:41 | disposition home or self-care (01) ==
LOC: OP CLINIC 10:40
PROVIDERS: PCP Family Medicine; Visit Provider Surgery
DX: R19.8 Other specified symptoms and signs involving the digestive system and abdomen (principal); K44.9 Diaphragmatic hernia without obstruction or gangrene
CPT/HCPCS: 00731; 43239; 88305; 99100; J2704; J3490

== ENCOUNTER 2024-03-10 11:15 | Outpatient (RCR) | payer MEDICARE, SELFPAY ==
--- NOTE | 2023-12-19 09:34 | PT.OPE ---
PT [facility] Outpatient Eval PT [facility] Outpatient Eval Start: 12/19/23 08:02 Freq: Status: Active Protocol: Document 12/19/23 08:02 LSL (Rec: 12/19/23 09:29 LSL [id number]) E-signed By Tri Hernandez PT Physical Therapy Outpatient Evaluation Insurance Information Insurance Name Medicare B,Blue Cross/Blue Shield Insurance Information/Comments Medicare Advantage Medical Diagnosis L shoulder pain Referring MD Pitts Subjective Subjective Pt. reports she had surgery in September and noticed L shoulder afterwards. If I am not careful when I am sleeping it hurts when I am on either side. Pt. reports it's an ache in the lateral right shoulder when I lay on it or move it. Elevation, and hor abduction/ adduction increase pain. Pt. is R hand dominant. I would like to be able to do my housework and gardening without having pain. PMH - surgery for strangulated femoral hernia and small bowel resection 10/17/23, HTN and hypercholesteremia medically treated Pain Comments 0/10 best, 5/10 worst Date of Last Physician Visit 11/01/23 Current Work Status Retired Precautions Therapy Limitations/Systems Review Other Medical Problem Objective Range of Motion AROM L R flexion 123 131 abduction 101 123 IR (HBB) L2 T11 ER 63 70 Cervical flexion 75%, extension 25%, B LF 10% with pain in L UT on R LF, B rotation 25% Thoracic - L rotation 30% with pain in L shoulder, R rotation WNL PROM L R flexion 158 161 abduction 161 180 IR 60 70 ER 70 90 Strength R ER 4+/5, L 4-/5, all others R 5/5, L deltoid 3+/5 with pain, supraspinatus 4+/5 with pain and all others 5/5 Palpation B rhomboids/middle traps, L supraspinatus, infraspinatus Posture forward head, elevated L shoulder Other/Pertinent Objective Joint Play - anterior glide / , all others normal Assessment Assessment/Impression Pt. is a 78 y/o female who presents with left shoulder pain after abdominal surgery. She has decreased ROM in B shoulders with L being more significant than right and some mild RC pain and weakness . It appears she may have some inflammation from prolonged positioning during her surgery that was exacerbated by pre- existing joint stiffness. She should respond well to treatment to restore her ROM and progress into strengthening using therex, joint mobiilzation, manual therapy and patient education. She will be heading out of town for an extended period after her second session of PT and we will see her for follow up when she returns. Primary Functional Limitations sleeping on her sides, reaching with her arms, lifting/reaching overhead Plan of Care Rehabilitation Potential Excellent Physical Therapy Goals SHORT TERM GOALS: (2 weeks) 1. Independent in HEP. 2. Pt. educated in and utilizing pillows to allow improved sleep ALF GOALS: (6-8 weeks) 1. Pt. to have 5/5 strength throughout B with pain less than 2/10. 2. Pt. able to sleep without pain in her shoulders in sidelying. Coordination/Communication With Referral Source Treatment Plan/Direct Interventions Joint Mobilization,Manual Therapy,Neuromuscular Re-ed, Self-Care/Home Management, Therapeutic Exercises Frequency/Duration 1x/week 2 weeks then she will be gone until 01/29/24 then another couple sessions when she returns Patient Will Be Discharged From Therapy Completion of LTG(s),Skills Plateau,Independent w/HEP, Independently Progressing Evaluation Billing Untimed Code Treatment Minutes 35 Complexity Low Certification Information Initial Certification Date 12/19/23 Ending Certification Date 03/18/24 Provider Signature Shows Agreement With POC & Medical Necessity Physician Signature & Date Requested Please Sign/Date Here Physician Comment/Change : Physician NPI Number #
== END 2024-06-02 15:28 | disposition home or self-care (01) ==
PROVIDERS: PCP Family Medicine; Visit Provider Family Medicine
DX: M25.512 Pain in left shoulder (principal); Z51.89 Encounter for other specified aftercare
CPT/HCPCS: 97110; 97140; 97161

== ENCOUNTER 2024-04-15 09:07 | Outpatient (CLI) | payer MEDICARE, SELFPAY | END 2024-04-15 09:08 | disposition home or self-care (01) | LOC: RAD 09:08 | PROVIDERS: PCP Family Medicine; Visit Provider Family Medicine | DX: I77.810 Thoracic aortic ectasia (principal); I35.1 Nonrheumatic aortic (valve) insufficiency | CPT/HCPCS: 93306 ==

== ENCOUNTER 2024-06-30 08:34 | Outpatient (CLI) | payer MEDICARE, SELFPAY | END 2024-06-30 08:35 | disposition home or self-care (01) | LOC: NFLDREF 07-04 17:52 | PROVIDERS: PCP Family Medicine; Referring Provider Family Medicine; Visit Provider Family Medicine | DX: I10 Essential (primary) hypertension (principal); I77.810 Thoracic aortic ectasia; E78.00 Pure hypercholesterolemia, unspecified | CPT/HCPCS: 80053; 80061 ==

== ENCOUNTER 2024-11-18 08:58 | Outpatient (CLI) | payer MEDICARE, SELFPAY | END 2024-11-18 08:59 | disposition home or self-care (01) | LOC: NFLDREF 11-21 20:51 | PROVIDERS: PCP Family Medicine; Referring Provider Family Medicine; Visit Provider Family Medicine | DX: E78.00 Pure hypercholesterolemia, unspecified (principal); I10 Essential (primary) hypertension; R53.83 Other fatigue; M85.80 Other specified disorders of bone density and structure, unspecified site; R41.3 Other amnesia; R10.9 Unspecified abdominal pain; R19.5 Other fecal abnormalities; Z78.0 Asymptomatic menopausal state; Z01.818 Encounter for other preprocedural examination | CPT/HCPCS: 80053; 80061; 82306; 82607; 84443 ==

== ENCOUNTER 2024-11-18 14:19 | Outpatient (CLI) | payer MEDICARE, SELFPAY ==
--- NOTE | 2024-11-18 15:00 | CRLHL7_ITS ---
For Patients: As a result of the Century Cures Act, medical imaging exams and procedure reports are released immediately into your electronic medical record. You may view this report before your referring provider. If you have questions, please contact your health care provider. Indication: ABDOMINAL PAIN, Acquired ABSENCE OF OTHER SPECIFIED FOOD INTOLERANCE, STOMACH PAINS Technique: CT Abdomen/Pelvis 75 CC`S ISOVUE 370 intravenous contrast Please note that all CT scans at this facility use dose modulation, iterative reconstruction, and/or weight-based dosing when appropriate to reduce radiation dose to as low as reasonably achievable. Comparison: 08/16/2021 Findings: Large hiatal hernia measures 8.9 cm. Mild linear subsegmental scarring in both lung bases. No pleural effusion. Mild fatty infiltration of the liver. No intrahepatic mass. No ascites. Spleen normal. Normal adrenal glands. Kidneys are within normal limits. The pancreas is unremarkable. Gallbladder is incompletely distended. Vascular calcifications. No aneurysm. Bladder normal. No pelvic mass. Inflammatory changes involving the sigmoid colon in the mid pelvis with strandy densities in the adjacent fat. No abscess. No bowel obstruction. No free air. No adenopathy. No vertebral body compression fracture. Chronic hypertrophic changes at the symphysis pubis. Small midline abdominal wall hernia contains fat, as before. Impression: Mild acute sigmoid diverticulitis. Please note that all CT scans at this facility use dose modulation, iterative reconstruction, and/or weight-based dosing when appropriate to reduce radiation dose to as low as reasonably achievable. Dictated by Gil Kirkland MD @ 11/20/2024 10:11:31 AM (Electronically Signed)
== END 2024-11-18 14:20 | disposition home or self-care (01) ==
LOC: CT 14:21
PROVIDERS: PCP Family Medicine; Visit Provider Family Medicine
DX: R10.9 Unspecified abdominal pain (principal); K57.32 Diverticulitis of large intestine without perforation or abscess without bleeding; R19.5 Other fecal abnormalities; Z90.49 Acquired absence of other specified parts of digestive tract
CPT/HCPCS: 74177; Q9967

== ENCOUNTER 2024-12-03 14:32 | Outpatient (CLI) | payer MEDICARE, SELFPAY ==
--- NOTE | 2024-12-03 15:00 | CRLHL7_ITS ---
For Patients: As a result of the Century Cures Act, medical imaging exams and procedure reports are released immediately into your electronic medical record. You may view this report before your referring provider. If you have questions, please contact your health care provider. XR DXA Bone Mineral Density (BMD) Reason for exam: Specified disorder of bone density. Current height (in): 64. Weight (lb): 148. Menopause age: 51. Ethnicity: White. 1. Have you had a previous hip or vertebral fracture? No. 2. Have you had any fractures during your adult life which did not result from significant trauma (e.g., auto accident)? No. 3. Did either of your parents have a hip fracture? Yes. 4. Do you smoke? No. 5. Have you ever taken Glucocorticoids? No. 6. Do you have rheumatoid arthritis? No. 7. Do you have secondary osteoporosis? No. 8. Do you drink 3 or more alcoholic drinks per day? No. 9. Are you being treated for osteoporosis? No. 10. Have you ever taken any of the following medications: Actonel, Evista, Fosamax, Miacalcin, Reclast, Boniva, Forteo, HRT (i.e., estrogen/hormone therapy), Protelos, Prolia, Vitamin D, Calcium, other ??? please specify. ANSWER: Yes, vitamin D and calcium. 11. Do you have any of the following medical conditions: Anorexia or bulimia, asthma or emphysema, end stage renal disease, hyperparathyroidism, any seizure disorders, cancer, inflammatory bowel diseases, hysterectomy, other ??? please specify. ANSWER: Yes, hysterectomy. 12. What was your maximum height (inches)? 64. 13. Do you perform weight bearing exercise regularly? No. 14. Do you regularly consume dairy products? Yes. 15. Do you drink caffeinated beverages? Yes. 16. At what age did your period start? 11. 17. Are you premenopausal? No. 18. How many full-term pregnancies have you had? 4. 19. Have you ever missed your period for more than 6 months in a row (not including or menopause)? No. TECHNIQUE: Bone mineral density study was performed using the [employer]. FINDINGS: The results of the study expressed as bone mineral density (BMD) are as follows: Lumbar spine L1 to L4: BMD: 0.867 g/cm2. T-score: -1.6. Z-score: 1.0 Neck Left: BMD: 0.682 g/cm2. T-score: -1.5. Z-score: 0.8 Right: BMD: 0.704 g/cm2. T-score: -1.3. Z-score: 1.0 Total Left: BMD: 0.890 g/cm2. T-score: -0.4. Z-score: 1.6 Right: BMD: 0.840 g/cm2. T-score: -0.8. Z-score: 1.2 IMPRESSION: Osteopenia. *Comparison exams done prior to 01/2020 were performed on different unit, [employer]. COMPARISON: Compared with scan of 08/30/2022, the bone mineral density has decreased by 0.8 percent at the spine and decreased by 3.6 percent at the hip. Compared with scan of 11/10/2015, the bone mineral density has increased by 0.9 percent at the spine and increased by 0.2 percent at the hip. FRAX 10-year Fracture Risk Major Osteoporotic Fracture: 23% Hip Fracture: 13% Reported Risk Factors: [place] () Neck BMD=0.682, BMI=25.4, parental fracture DEANA HERNANDEZ M.D. Diagnostic Radiologist [email or web address] YULI:[email or web address] wick/Dictated by: Deana Hernandez MD @ 12/07/2024 8:28:00 AM (Electronically Signed)
--- NOTE | 2024-12-03 15:40 | CRLHL7_ITS ---
For Patients: As a result of the Century Cures Act, medical imaging exams and procedure reports are released immediately into your electronic medical record. You may view this report before your referring provider. If you have questions, please contact your health care provider. BILATERAL DIGITAL SCREENING MAMMOGRAM WITH COMPUTER-AIDED DETECTION AND TOMOSYNTHESIS CLINICAL HISTORY: : Routine screening exam. COMPARISON: 11/13/22, 10/29/19, 02/03/18 TECHNIQUE: Digital mammogram in CC and MLO projections including computer-aided detection (CAD). Tomosynthesis was used in this interpretation. BREAST COMPOSITION: There are scattered areas of fibroglandular density. FINDINGS: RIGHT Breast: No suspicious findings LEFT Breast: Focal asymmetric density within the retroareolar plane, 5 cm from the nipple, lower inner quadrant. IMPRESSION: LEFT breast asymmetry/mass. RECOMMENDATIONS: Additional mammographic views of the LEFT breast including 3D spot compression CC/MLO. LEFT breast ultrasound may also be required. The [facility] will contact the patient. A lay language report of this examination will be provided to the patient. BI-RADS Category 0: Incomplete: Need Additional Imaging Evaluation Dictated by Gil Kirkland MD @ 12/10/2024 1:23:32 PM Dictated by: Gil Kirkland MD @ 12/10/2024 13:23:39 (Electronically Signed)
== END 2024-12-03 14:33 | disposition home or self-care (01) ==
LOC: RAD 14:33
PROVIDERS: PCP Family Medicine; Visit Provider Family Medicine
DX: Z12.31 Encounter for screening mammogram for malignant neoplasm of breast (principal); N63.20 Unspecified lump in the left breast, unspecified quadrant; M85.89 Other specified disorders of bone density and structure, multiple sites; Z78.0 Asymptomatic menopausal state
CPT/HCPCS: 77063; 77067; 77080

== ENCOUNTER 2024-12-25 07:30 | Outpatient (CLI) | payer MEDICARE, SELFPAY ==
--- NOTE | 2024-12-25 07:45 | CRLHL7_ITS ---
For Patients: As a result of the Century Cures Act, medical imaging exams and procedure reports are released immediately into your electronic medical record. You may view this report before your referring provider. If you have questions, please contact your health care provider. DIAGNOSTIC LEFT BREAST MAMMOGRAM WITH TOMOSYNTHESIS, 12/25/2024 LEFT BREAST ULTRASOUND, 12/25/2024 CLINICAL HISTORY: LEFT breast mass/asymmetry. COMPARISON: 12/03/24, 11/13/22, 10/29/19. TECHNIQUE: Digital LEFT mammogram in 2 projections. Tomosynthesis was used in this interpretation. Real-time ultrasound imaging of LEFT breast with imaging documentation. BREAST COMPOSITION: There are scattered areas of fibroglandular density. FINDINGS: 3D spot compression CC/MLO LEFT breast mammogram images submitted. Decreased conspicuity of previously noted asymmetric density. No architectural distortion. No suspicious calcifications. Targeted ultrasound 8 o`clock, 5 cm from the nipple performed. Normal fibroglandular tissue is present. No suspicious mass. No fibrocystic change. IMPRESSION: No evidence of malignancy. RECOMMENDATIONS: Routine screening mammography. A lay language report of this examination will be provided to the patient. BI-RADS Category 1. Negative. Dictated by Gil Kirkland MD @ 12/25/2024 8:46:43 AM HANSEL/saadia DW/Dictated by: Gil Kirkland MD @ 12/25/2024 8:46:00 AM (Electronically Signed)
--- NOTE | 2024-12-25 08:15 | CRLHL7_ITS ---
For Patients: As a result of the Century Cures Act, medical imaging exams and procedure reports are released immediately into your electronic medical record. You may view this report before your referring provider. If you have questions, please contact your health care provider. Please see LEFT breast diagnostic mammogram report done same day. DM:[email or web address] 12/25/2024 DW/Dictated by: Gil Kirkland MD @ 12/25/2024 8:46:00 AM (Electronically Signed)
== END 2024-12-25 07:31 | disposition home or self-care (01) ==
LOC: MAMMO 07:31
PROVIDERS: PCP Family Medicine; Visit Provider Family Medicine
DX: N63.20 Unspecified lump in the left breast, unspecified quadrant (principal); R92.8 Other abnormal and inconclusive findings on diagnostic imaging of breast
CPT/HCPCS: 76642; 77065; G0279

== ENCOUNTER 2025-07-01 08:40 | Outpatient (CLI) | payer MEDICARE, SELFPAY ==
--- NOTE | 2025-07-01 10:25 | P.ANES_ITS ---
Anesthesia Charges Start Date/Time Anesthesia Start Date: 07/01/25 Anesthesia Start Time: 09:45 Stop Date/Time Anesthesia Stop Date: 07/01/25 Anesthesia Stop Time: 10:24 Summary Extremes of Age - Over 70 or under 1: THERAPEUTIC MENTOR Coding CPT Codes CPT Codes: ANES LWR INTST SCR COLSC - 49242 ([id number]) P2 - PATIENT W/MILD SYST DISEASE, QK - CARE MANAGER CNA 2-4 CNCRNT ANES PROC Additional Codes: Summary - Extremes of Age - Over 70 or under 1: THERAPEUTIC MENTOR ([id number])
--- NOTE | 2025-07-01 10:25 | W.ANESCHARGE ---
Anesthesia Charges Start Date/Time Anesthesia Start Date: 07/01/25 Anesthesia Start Time: 09:45 Stop Date/Time Anesthesia Stop Date: 07/01/25 Anesthesia Stop Time: 10:24 Summary Extremes of Age - Over 70 or under 1: COLLET GLUER Coding CPT Codes CPT Codes: ANES LWR INTST SCR COLSC - 66086 ([id number]) P2 - PATIENT W/MILD SYST DISEASE, QK - RIPRAP PLACING SUPERVISOR 2-4 CNCRNT ANES PROC Additional Codes: Summary - Extremes of Age - Over 70 or under 1: COLLET GLUER ([id number])
--- NOTE | 2025-07-01 10:33 | W.ANESCHARGE ---
Anesthesia Charges Start Date/Time Anesthesia Start Date: 07/01/25 Anesthesia Start Time: 09:45 Stop Date/Time Anesthesia Stop Date: 07/01/25 Anesthesia Stop Time: 10:24 Summary Extremes of Age - Over 70 or under 1: MDA Coding CPT Codes CPT Codes: ANES LWR INTST SCR COLSC - 13585 ([id number]) QK - RESEARCH PSYCHOLOGIST 2-4 CNCRNT ANES PROC, QX - ZONE SUPERVISOR FIREARMS SVC W/ MD MED DIRECTION, P2 - PATIENT W/MILD SYST DISEASE Additional Codes: Summary - Extremes of Age - Over 70 or under 1: MDA ([id number])
== END 2025-07-01 08:41 | disposition home or self-care (01) ==
LOC: OP CLINIC 08:40
PROVIDERS: PCP Family Medicine; Visit Provider Surgery
DX: K64.9 Unspecified hemorrhoids (principal); K57.30 Diverticulosis of large intestine without perforation or abscess without bleeding; Z86.0100 Personal history of colon polyps, unspecified
CPT/HCPCS: 00812; 45378; 99100; J2704

== ENCOUNTER 2025-07-02 07:46 | Outpatient (CLI) | payer MEDICARE, SELFPAY ==
--- NOTE | 2025-07-02 08:15 | CRLHL7_ITS ---
For Patients: As a result of the Century Cures Act, medical imaging exams and procedure reports are released immediately into your electronic medical record. You may view this report before your referring provider. If you have questions, please contact your health care provider. Technique: Double contrast barium enema study performed. Fluoroscopy time 4 minutes 24 seconds. Indication: positive Cologuard, failed colonoscopy Comparison: None. Findings: Extensive sigmoid diverticulosis. No stricture or mass. Incomplete opacification of the proximal right colon. No obstruction. No extravasation. No acute inflammation. Impression: Extensive sigmoid diverticulosis. Dictated by Gil Kirkland MD @ 07/02/2025 2:33:42 PM (Electronically Signed)
== END 2025-07-02 07:47 | disposition home or self-care (01) ==
LOC: RAD 07:47
PROVIDERS: PCP Family Medicine; Visit Provider Surgery
DX: K57.30 Diverticulosis of large intestine without perforation or abscess without bleeding (principal); Z98.890 Other specified postprocedural states; Z86.0100 Personal history of colon polyps, unspecified
CPT/HCPCS: 74280

== ENCOUNTER 2025-08-13 14:50 | Outpatient (CLI) | payer MEDICARE, SELFPAY | END 2025-08-13 14:51 | disposition home or self-care (01) | LOC: NFLDREF 08-16 13:23 | PROVIDERS: PCP Family Medicine; Referring Provider Family Medicine; Visit Provider Physician Assistant | DX: N39.0 Urinary tract infection, site not specified (principal) | CPT/HCPCS: 87086 ==